=== PATIENT | male | born 1960 | race Two or more races ===

== ENCOUNTER 2024-05-28 20:15 | Emergency (ER) | payer MEDICAID, OTHER ==
[~2024-05-28] VITALS: Ht 172.7 cm; Wt 91.0 kg
--- NOTE | 2024-05-28 21:36 | DVH ---
EXAM: XY CHEST XRAY 1 VIEW TECHNIQUE: Single frontal chest radiograph CLINICAL HISTORY: cp COMPARISON: None Findings/Impression: Frontal chest radiograph demonstrates no acute osseous or superficial soft tissue abnormalities. The trachea is midline. The cardiac silhouette and mediastinum are within normal limits. No pneumothorax, pleural effusions, or consolidations.
--- NOTE | 2024-05-28 21:38 | ED.PDOC ---
History of Present Illness HPI Comments 64-year-old male who came to ER via EMS for anxiety. Does have history of Anxiety. States he was at home when he started feeling very anxious, and noted that his blood pressure was elevated. Persistence of anxiety attacks prompted patient to call the paramedics. Patient also complaining of intermittent episodes of abdominal pain, with patient presents nausea and vomiting. Patient does have history of hernia and he assumes the abdominal pain is due to it. Upon arrival of paramedics, blood pressure was 202/120 mm Hg. Chief Complaint: Anxiety Time Seen by MD: 21:38 Reviewed Notes: Nurses Notes Allergies: Coded Allergies: NO KNOWN ALLERGIES (Unverified , 05/29/24) Information Source: Patient Mode of Arrival: EMS Severity: Moderate Timing: Hours Duration: Since onset Prehospital treatment: None Medication Refill: For: Other Review of Systems: REVIEW OF SYSTEMS: No fever, no chills, or fatigue HEENT: No sore throat, no earache, no congestion, no neck pain. Cardiac: No chest pain. No palpitations. Lungs: No shortness of breath, no cough. GI: No nausea, no vomiting, no diarrhea, no constipation, (+)abdominal pain : No dysuria, frequency, or urgency. No hematuria. Musculoskeletal: No joint pain , no joint swelling, no extremity edema. Skin: No rash, no itching. Neuro: No headache, no dizziness, no weakness (+) anxiety Vital Signs Vital Signs Date Time Temp Pulse Resp B/P (MAP) Pulse Ox O2 Delivery O2 Flow Rate FiO2 05/29/24 01:09 67 18 94 Nasal Cannula* 3 32 05/29/24 01:09 97.2 130/82 (98) 97.2 Physical Exam General: Awake, alert and oriented. No acute distress. Skin: Skin in warm, dry and intact. Appropriate color for ethnicity. Nailbeds pink with no cyanosis. HEENT: Nasal cannula in place. The head is normocephalic and atraumatic. Conjunctivae are clear without exudates or hemorrhage. Sclera is non-icteric. EOM are intact. No signs of nystagmus. Eyelids are normal in appearance without swelling or lesions. Oral mucosa is pink and moist Neck: The neck is supple with normal range of motion. No JVD. Cardiac: Heart rate and rhythm are normal. No murmurs, gallops, or rubs are auscultated. Respiratory: No signs of respiratory distress. Lung sounds are clear in all lobes bilaterally without rales, ronchi, or wheezes. Abdominal: Abdomen is soft, reducible ventral hernia in the epigastric area, no overlying skin changes. Mild tenderness to palpation. Bowel sounds are present and normoactive in all four quadrants. Extremities: Upper and lower extremities are atraumatic in appearance without deformity or edema. Neurological: The patient is awake, alert and oriented to person, place, and time with normal speech. Speech is clear. There is no facial asymmetry. Psychiatric: Appropriate mood and affect. Good judgement and insight. No visual or auditory hallucinations. Past Medical History PAST MEDICAL HISTORY: HTN Past Medical History (Other): Hernia Surgical History: Denies all surgeries Family History Family History: Reviewed,noncontributory to illness Social History Smoker: Non-Smoker Alcohol: Denies ETOH Use Drugs: Denies Drug Use Lives In: Home Was a procedure done? Was a procedure done?: No Differential Dx Considerations may include: Anemia, electrolyte imbalance, hypertension, anxiety X-Ray, Labs, Meds, VS Vital Signs Date Time Temp Pulse Resp B/P (MAP) Pulse Ox O2 Delivery O2 Flow Rate FiO2 05/29/24 01:09 67 18 94 Nasal Cannula* 3 32 05/29/24 01:09 97.2 67 18 130/82 (98) 94 97.2 05/28/24 20:35 68 05/28/24 20:16 97.6 70 18 180/87 (118) 98 Lab Test 05/28/24 23:17 05/28/24 22:18 05/28/24 21:14 Range/Units Lactic Acid Level 1.2 2.5 *H 0.4-2.0 mmol/L Troponin I High Sensitivity 5 3 L </=54 ng/L White Blood Count 6.9 4.4-10.8 10^3/uL Red Blood Count 4.41 L 4.5-5.90 10^6/uL Hemoglobin 13.3 L 13.5-17.5 g/dL Hematocrit 40.3 L 41.0-53.0 % Mean Corpuscular Volume 91.3 80.0-100.0 fL Mean Corpuscular Hemoglobin 30.2 28.0-32.0 pg Mean Corpuscular Hemoglobin Concent 33.1 32.0-36.0 g/dL Red Cell Distribution Width 12.7 11.8-14.3 % Platelet Count 84 L 140-450 10^3/uL Mean Platelet Volume 11.1 H 6.9-10.8 fL Neutrophils (%) (Auto) 48.6 37.0-80.0 % Lymphocytes (%) (Auto) 37.5 10.0-50.0 % Monocytes (%) (Auto) 9.8 0.0-12.0 % Eosinophils (%) (Auto) 3.6 0.0-7.0 % Basophils (%) (Auto) 0.5 0.0-2.0 % Neutrophils # (Auto) 3.3 1.6-8.6 10 ^3/uL Lymphocytes # (Auto) 2.6 0.4-5.4 10 ^3/uL Monocytes # (Auto) 0.7 0-1.3 10 ^3/uL Eosinophils # (Auto) 0.2 0-0.8 10 ^3/uL Basophils # (Auto) 0 0-0.2 10 ^3/uL Nucleated Red Blood Cells 0.1 % Platelet Estimate Decreased Sodium Level 142 136-145 mmol/L Potassium Level 3.6 3.5-5.1 mmol/L Chloride Level 106 98-107 mmol/L Carbon Dioxide Level 25 20-31 mmol/L Anion Gap 11 5-15 Blood Urea Nitrogen 12 9-23 mg/dL Creatinine 0.86 0.700-1.30 mg/dL Glomerular Filtration Rate Calc 96 >90 mL/min BUN/Creatinine Ratio 14.0 10.0-20.0 Serum Glucose 113 H 74-106 mg/dL Calcium Level 9.3 8.7-10.4 mg/dL Total Bilirubin 0.3 0.2-1.0 mg/dL Aspartate Amino Transferase (AST) 26 13-40 U/L Alanine Aminotransferase (ALT) 24 7-40 U/L Alkaline Phosphatase 139 H 46-116 U/L B-Type Natriuretic Peptide 104.79 0-100 pg/mL Total Protein 7.0 5.7-8.2 g/dL Albumin 4.3 3.2-4.8 g/dL Lipase 26 12-53 U/L Current Medications Medications (Trade) Dose Ordered Sig/[place] Route Start Time Stop Time Status Last Admin Sodium Chloride 1,000 ml @ 1,000 mls/hr Q1H ONCE IV 05/29/24 01:15 05/29/24 02:14 DC 05/29/24 01:09 Time of 1ST Reevaluation: 21:35 Reevaluation 1ST: Unchanged Patient Education/Counseling: Diagnosis, Treatment Family Education/Counseling: No Family Present Departure 1 Departure Time of Disposition: 02:35 Impression: Primary Impression: Anxiety Additional Impressions: Abdominal pain Chest pain Disposition: HOME / SELF CARE / HOMELESS Condition: Stable Additional Instructions: ED DISCHARGE INSTRUCTIONS Instructions: Please read all instructions provided in this packet carefully. Although you have been discharged from the Emergency Department, this does not mean that you have a "clean bill of health". No definitive diagnosis for your symptoms has been made today. It is possible that you are in the process of developing a serious illness. This is why you must return to the ED without fail if any new or worsening symptoms (especially if your symptoms include chest pain, trouble breathing, abdominal pain, fever, headache, confusion, trouble seeing, or trouble walking) It is also very important that you see a primary care doctor within the next 3-5 days to follow up. If you are unable to get an appointment, return to the ED for re-evaluation. Follow up with the primary care provider about the following abnormal findings on the CT scan of her abdomen: IMPRESSION: 1. Anterior right paramidline abdominal wall hernia containing a nonobstructed anti mesenteric segment of mid transverse colon. 2. Additional supraumbilical midline anterior abdominal wall hernia containing fat. 3. Soft tissue stranding about the central mesentery which could reflect mesenteric panniculitis. Additional consideration such as malignancy less likely, though compare to any prior imaging if available. Otherwise follow-up CT could be obtained in 3-6 months for re-evaluation. 4. At least mild partially imaged calcified coronary artery disease 5. Cholelithiasis 6. Moderate retained stool in the colon. 7. Mildly dilated segment of small bowel at an anastomosis in the left abdomen, likely postoperative. 8. Mild prostatomegaly with nodular hypertrophy indenting into the bladder base Abdominal Pain: Care Instructions Overview Abdominal pain has many possible causes. Some aren't serious and get better on their own in a few days. Others need more testing and treatment. If your pain continues or gets worse, you need to be rechecked and may need more tests to find out what is wrong. You may need surgery to correct the problem. Don't ignore new symptoms, such as fever, nausea and vomiting, urination problems, pain that gets worse, and dizziness. These may be signs of a more serious problem. If you are not getting better, you may need more tests or treatment. The doctor has checked you carefully, but problems can develop later. If you notice any problems or new symptoms, get medical treatment right away. Follow-up care is a chapa part of your treatment and safety. Be sure to make and go to all appointments, and call your doctor if you are having problems. It's also a good idea to know your test results and keep a list of the medicines you take. How can you care for yourself at home? Rest until you feel better. To prevent dehydration, drink plenty of fluids. Choose water and other clear liquids until you feel better. If you have kidney, heart, or liver disease and have to limit fluids, talk with your doctor before you increase the amount of fluids you drink. When you feel like eating, start with small amounts. Do not have alcohol, caffeine, or spicy, hot, or high-fat foods for a day or two. Avoid anti-inflammatory medicines such as aspirin, ibuprofen (Advil, Motrin), and naproxen (Aleve). These can cause stomach upset. Talk to your doctor if you take daily aspirin for another health problem. When should you call for help? Call 911 anytime you think you may need emergency care. For example, call if: You passed out (lost consciousness). You pass maroon or very bloody stools. You vomit blood or what looks like coffee grounds. You have severe belly pain. Call your doctor now or seek immediate medical care if: Your pain gets worse, especially if it becomes focused in one area of your belly. You have a new or higher fever. Your stools are black and look like tar, or they have streaks of blood. You have unexpected vaginal bleeding. You have symptoms of a urinary tract infection. These may include: Pain when you urinate. Urinating more often than usual. Blood in your urine. You are dizzy or lightheaded, or you feel like you may faint. Watch closely for changes in your health, and be sure to contact your doctor if: You are not getting better as expected. Credits for Abdominal Pain: Care Instructions Current as of: April 11, 2023 Author: [employer], [employer] Clinical Review Board [employer] education is reviewed by a team that includes physicians, nurses, advanced practitioners, registered dieticians, and other healthcare professionals. Comments 64-year-old male with abdominal pain and anxiety. He reports his symptoms have resolved during the ED observation. He states he is feeling improved ambulate to go home. Possible mesenteric panniculitis noted on CT abdomen and pelvis. Patient has no leukocytosis, no fever. Lactic acid mildly elevated improved during the ED observation. Patient is advised of abnormal findings, importance of follow up with primary care provider and to return to the emergency department with any concerning symptoms. Extensive evaluation was performed to identify or rule out: (See differential diagnosis section) The following tests were ordered, and results were reviewed by me: (See diagnostic results section) The following test were independently interpreted by me: EKG-no STEMI, chest x-ray-no acute process I reviewed and agreed with the following test results read by other providers: N/A I reviewed the following notes from the pt's past medical encounters: (None available at this time) Additional information was gathered from interviewing the following independent historians: EMS Discussion of management or test interpretation with external physician/other qualified health career advisor: N/A Addressed one or more chronic illnesses with severe exacerbation, progression, or side effects of treatment: Anxiety, an acute or chronic illness that poses a threat to life or bodily function: Lactic acidemia, chest pain Decision regarding hospitalization or escalation of hospital level of care: Risk and benefits of admission for further treatment of patient's condition was considered. Due to patient's current clinical condition, high risk of decline and poor outcome if discharged and need for further inpatient management and monitoring, patient will be admitted to the hospital. Drug therapy requiring intensive monitoring for toxicity: N/A Parenteral controlled substances: N/A Decision regarding elective major surgery with identified patient or procedure risk factors: N/A Decision regarding emergency major surgery: N/A Decision not to resuscitate or to de-escalate care because of poor prognosis: N/A Decision regarding hospitalization or escalation of hospital level of care: Risks and benefits of admission for further treatment of patient's condition was considered however due to patient's stable condition patient will be discharged to follow up closely or return to care for worsening of condition or inability to follow up. Critical Care Note Critical Care Time?: No Stability Stability form required: No Heart Score Heart Score: Heart Score Response (Comments) Value History N/A 0 EKG N/A 0 Age N/A 0 Risk Factors N/A 0 Troponin N/A 0 Total 0 I personally scribed for CHUYITA MCKEON MD ([email or web address]) on 05/28/24 at 21:38. Electronically submitted by Jose Vivar ([employer]). I personally scribed for CHUYITA MCKEON MD ([email or web address]) on 05/28/24 at 21:44. Electronically submitted by Jose Vivar ([employer]). CHUYITA MCKEON MD May 28, 2024 21:38
[2024-05-28 21:51] LABS: Basophils # (auto) 0 10 ^3/uL (0-0.2); Basophils % (auto) 0.5 % (0.0-2.0); Eosinophils # (auto) 0.2 10 ^3/uL (0-0.8); Eosinophils % (auto) 3.6 % (0.0-7.0); Hematocrit 40.3 % (41.0-53.0); Hemoglobin 13.3 g/dL (13.5-17.5); Lymphocytes # (auto) 2.6 10 ^3/uL (0.4-5.4); Lymphocytes % (auto) 37.5 % (10.0-50.0); Mean Corpuscular Hemoglobin 30.2 pg (28.0-32.0); Mean Corpuscular Hgb Conc. 33.1 g/dL (32.0-36.0); Mean Corpuscular Volume 91.3 fL (80.0-100.0); Monocytes # (auto) 0.7 10 ^3/uL (0-1.3); Monocytes % (auto) 9.8 % (0.0-12.0); Neutrophils # (auto) 3.3 10 ^3/uL (1.6-8.6); Neutrophils % (auto) 48.6 % (37.0-80.0); Nucleated Red Blood Cells % 0.1 %; Platelet Count (auto) 84 10^3/uL (140-450); Red Blood Cells 4.41 10^6/uL (4.5-5.90); Red Cell Distribution Width 12.7 % (11.8-14.3); White Blood Cell 6.9 10^3/uL (4.4-10.8)
[2024-05-28 22:04] LABS: Alanine Aminotransferase 24 U/L (7-40); Albumin 4.3 g/dL (3.2-4.8); Anion Gap 11 (5-15); Aspartate Aminotransferase 26 U/L (13-40); Blood Urea Nitrogen 12 mg/dL (9-23); Calcium 9.3 mg/dL (8.7-10.4); Carbon Dioxide 25 mmol/L (20-31); Chloride 106 mmol/L (98-107); Lipase 26 U/L (12-53); Potassium 3.6 mmol/L (3.5-5.1); Sodium 142 mmol/L (136-145)
[2024-05-28 22:21] LABS: Alkaline Phosphatase 139 U/L (46-116); Bilirubin, Total 0.3 mg/dL (0.2-1.0); Glucose 113 mg/dL (74-106)
[2024-05-28 22:24] LABS: Lactic Acid w/Reflex 2.5 mmol/L (0.4-2.0)
[2024-05-28 22:32] LABS: Platelet Estimate Decreased
[2024-05-29] MEDS: SODIUM CHLORIDE 0.9% 1,000 ML IV ONE ×2 (00:44→01:09)
[2024-05-29 01:09] VITALS: BP 130/82; PULSE 67; RESP 18; TEMP 97.2; O2SAT 94
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
[2024-05-29] MEDS: IOHEXOL 300 MG/ML 100ML BOTTLE IJ ONE (02:15)
--- NOTE | 2024-05-29 07:00 | ECG ---
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
== END 2024-05-29 04:25 | disposition home or self-care (01) ==
LOC: ER 20:15 → EDBD 20:15 → ER 05-29 04:25
DX: F41.9 Anxiety disorder, unspecified (principal); R10.9 Unspecified abdominal pain; R07.89 Other chest pain; R11.2 Nausea with vomiting, unspecified; I10 Essential (primary) hypertension; R06.02 Shortness of breath; K43.9 Ventral hernia without obstruction or gangrene
CPT/HCPCS: 36415; 71045; 74177; 80053; 83605; 83690; 83880; 84484; 85025; 93005; 96360; 99285; J7030; Q9967

== ENCOUNTER 2024-06-30 18:14 | Inpatient (IN) | payer MEDICAID ==
[~2024-06-30] VITALS: Ht 172.7 cm; Wt 100.0 kg
[~2024-06-30 18:14] MED LIST: ATOR40TA52 PO; CEPH250C PO; FAMO40TA7 PO; IPRA0.00 IN; LISI40TA16 PO
--- NOTE | 2024-06-30 18:32 | ECG ---
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
--- NOTE | 2024-06-30 18:50 | ED.PDOC ---
SOB-HPI HPI Comments Vitals: temperature of 98.1F, pulse rate of 80, respiratory rate of 18, blood pressure of 139/94, and a SpO2 of 96%RA HPI: Poor Historian. 64-year-old male brought in by ambulance from home for sudden shortness of breath that developed approximately an hour prior to my evaluation. Patient is supposed to be on Lasix but has not been taking it for one year. Patient was hypotensive at the scene with systolic blood pressure in the 190s and EMS r eports hearing some crackles./rales. Initial pulse ox was 91%. Patient was given nitroglycerin sublingually which improves his blood pressure and patient felt some improvement. Past Medcial History: CHF, hypertension, anxiety Past Surgical History: REVIEW OF SYSTEMS: CONSTITUTIONAL: Denies acute: fever, diaphoresis, chills, HEAD: Denies acute: headache, photophobia Eyes: Denies acute: Double vision, vision loss, eye pain, eye discharge. EARS: Denies acute: tinnitus, hearing loss, ear discharge, ear pain, THROAT: Denies acute: sore throat, swelling, difficulty swallowing , pain with swallowing, change in voice. NECK: Denies acute: neck pain, neck swelling, stiff neck. HEART: Denies acute : chest pain, palpitations, LUNGS: Denies acute: wheezing, cough, hemoptysis ABDOMEN: Denies acute: abdominal pain, Nausea, Vomiting, diarrhea, melena , hematemesis, hematochezia SKIN: Denies acute: rash, redness, lesions, itchiness. EXTREMITIES: Denies acute: calf pain, numbness, tingling, weakness, denies pain in extremity. Denies acute: Low back pain. Neuro: Denies acute: focal neurological deficit, motor or sensory focal neurological deficit, tremors, seizure like activity, confusion, dizziness, change in mental status, loss of bowel or bladder function, cauda equina like symptoms. : Denies acute: dysuria, hematuria, flank pain, increase in urinary frequency. PSYCH: Denies acute: hallucination, suicidal ideation, homicidal ideation. PHYSICAL EXAM: General: no acute distress, awake and alert. Head: normocephalic, atraumatic. Neck: supple, trachea is midline, no swelling. Throat: Normal phonation. Eyes:, no erythema, no purulent discharge, no proptosis, no icterus. Heart: regular rate, regular rhythm, no significant murmur appreciated. Lungs: Mild to moderate apparent respiratory distress, No wheezing, no rhonchi, mild crackles. No stridors Abdomen: non tender to palpation, non distended, soft, no guarding, no rebound, + bowel sounds. Neuro: Awake, Alert, oriented to name, self, situation, follows commands GCS=15. Speech is normal. Skin: no petechia, no purpura, no cyanosis, non-pale, not jaundice. Lower extremities: --trace bilateral - Pitting edema no deformity, no focal swelling, no calf TTP. Makes eye contact. moves all four extremities. Face: no apparent facial droop. Chief Complaint: Shortness of Breath Time Seen by MD: 18:18 Reviewed notes: Allergies Information Source: Patient, Emergency Med Personnel Mode of Arrival: EMS EKG EKG : Pulse Rate (adult): 67 [facility]: Normal Cardiac Rhythm: NSR Block: None Hypertrophy: None ST: Normal Was a procedure done? Was a procedure done?: No X-Ray, Labs, Meds, VS Vital Signs Date Time Temp Pulse Resp B/P (MAP) Pulse Ox O2 Delivery O2 Flow Rate FiO2 06/30/24 18:50 67 06/30/24 18:24 67 06/30/24 18:17 98.1 80 18 139/94 (109) 96 Lab Test 06/30/24 21:01 06/30/24 19:46 06/30/24 18:48 Range/Units Blood Gas Specimen Type Arterial Blood Gas Sample Site Left radial Blood Gas Patient Temperature 37.0 Arterial Blood Date Drawn [id number] Arterial Blood pH 7.384 7.350-7.450 Arterial Blood Partial Pressure CO2 45.9 35.0-48.0 mmHg Arterial Blood Partial Pressure O2 74.9 L 83.0-108.0 mmHg Arterial Blood HCO3 26.8 21.0-28.0 mmol/L Arterial Blood Oxygen Saturation 94.2 94.0-98.0 % Arterial Blood Base Excess 1.2 -2.0-3.0 mmol/L Arterial Blood Oxyhemoglobin 93.2 L 94.0-98.0 % Arterial Blood Carboxyhemoglobin 0.8 0.5-1.5 % Arterial Blood Methemoglobin 0.3 0.0-1.5 % Joselito Test Yes Blood Gas Total Hemoglobin 14.80 13.5-17.5 g/dL Blood Gas Liter Flow 2.00 Blood Gas Modality Nasal cannula FiO2 % 28.0 Troponin I High Sensitivity 4 4 </=54 ng/L White Blood Count 7.5 4.4-10.8 10^3/uL Red Blood Count 4.48 L 4.5-5.90 10^6/uL Hemoglobin 13.7 13.5-17.5 g/dL Hematocrit 41.0 41.0-53.0 % Mean Corpuscular Volume 91.6 80.0-100.0 fL Mean Corpuscular Hemoglobin 30.5 28.0-32.0 pg Mean Corpuscular Hemoglobin Concent 33.3 32.0-36.0 g/dL Red Cell Distribution Width 12.8 11.8-14.3 % Platelet Count 97 L 140-450 10^3/uL Mean Platelet Volume 12.3 H 6.9-10.8 fL Neutrophils (%) (Auto) 52.3 37.0-80.0 % Lymphocytes (%) (Auto) 35.4 10.0-50.0 % Monocytes (%) (Auto) 8.5 0.0-12.0 % Eosinophils (%) (Auto) 3.2 0.0-7.0 % Basophils (%) (Auto) 0.6 0.0-2.0 % Neutrophils # (Auto) 3.9 1.6-8.6 10 ^3/uL Lymphocytes # (Auto) 2.7 0.4-5.4 10 ^3/uL Monocytes # (Auto) 0.6 0-1.3 10 ^3/uL Eosinophils # (Auto) 0.2 0-0.8 10 ^3/uL Basophils # (Auto) 0 0-0.2 10 ^3/uL Nucleated Red Blood Cells 0.1 % Sodium Level 141 136-145 mmol/L Potassium Level 3.6 3.5-5.1 mmol/L Chloride Level 107 98-107 mmol/L Carbon Dioxide Level 26 20-31 mmol/L Anion Gap 8 5-15 Blood Urea Nitrogen 12 9-23 mg/dL Creatinine 0.83 0.700-1.30 mg/dL Glomerular Filtration Rate Calc 97 >90 mL/min BUN/Creatinine Ratio 14.5 10.0-20.0 Serum Glucose 98 74-106 mg/dL Lactic Acid Level 1.6 0.4-2.0 mmol/L Calcium Level 9.1 8.7-10.4 mg/dL Magnesium Level 1.8 1.6-2.6 mg/dL Total Bilirubin 0.4 0.2-1.0 mg/dL Aspartate Amino Transferase (AST) 23 13-40 U/L Alanine Aminotransferase (ALT) 20 7-40 U/L Alkaline Phosphatase 127 H 46-116 U/L B-Type Natriuretic Peptide 73.10 0-100 pg/mL Total Protein 7.2 5.7-8.2 g/dL Albumin 4.3 3.2-4.8 g/dL [place] [id number] Ph: [phone] DIAGNOSTIC IMAGING Diagnostic Imaging Report : [id number] Signed PATIENT: JOHN ZAPATA ACCT: [id number] UNIT: [id number] : 1960 LOC: ER ROOM / BED: / AGE / SEX: 64 / M ADM STATUS: REG ER SERVICE 183 ORDERING PHYSICIAN: JESSICA FRASER DO PROCEDURE(s): CXRP - CHEST PORTABLE REASON: sob ORDER NUMBER(s): [id number], ACCESSION NUMBER(s): [id number] CHEST RADIOGRAPH Indication: sob Technique: Single frontal view of the chest was obtained Comparison: XY CHEST XRAY 1 VIEW on DOS: 05/28/24 FINDINGS: Lines and Tubes: None Lungs: Clear Pleura: No effusion. No pneumothorax. Cardiomediastinal contours: Unremarkable Bones: Unremarkable IMPRESSION: Clear lungs. ATED BY: APRIL NDIAYE DO DICTATED DATE/TIME: 06/30/241924 SIGNED BY: APRIL NDIAYE DO SIGNED DATE/TIME: 06/30/241924 CC: Reevaluation 1ST: Unchanged Patient Education/Counseling: Diagnosis, Treatment Family Education/Counseling: No Family Present Departure 1 Departure Time of Disposition: 20:52 Impression: Primary Impression: Dyspnea Additional Impressions: Hypertensive urgency History of medication noncompliance Disposition: ADMITTED INPATIENT Admit to: [facility] Condition: Guarded Discharged With: Self Critical Care Note Critical Care Time?: No Heart Score Heart Score: Heart Score Response (Comments) Value Age >65 2 Risk Factors 1 or 2 risk factors 1 Total 3 I personally scribed for JESSICA FRASER DO ([email or web address]) on 06/30/24 at 18:50. Electronically submitted by Fly Malik ([email or web address]). I personally scribed for JESSICA FRASER DO ([email or web address]) on 07/01/24 at 01:36. Electronically submitted by Fly Malik ([email or web address]). JESSICA FRASER DO Jun 30, 2024 18:50
[2024-06-30 19:20] LABS: Basophils # (auto) 0 10 ^3/uL (0-0.2); Basophils % (auto) 0.6 % (0.0-2.0); Eosinophils # (auto) 0.2 10 ^3/uL (0-0.8); Eosinophils % (auto) 3.2 % (0.0-7.0); Hemoglobin 13.7 g/dL (13.5-17.5); Lymphocytes # (auto) 2.7 10 ^3/uL (0.4-5.4); Lymphocytes % (auto) 35.4 % (10.0-50.0); Mean Corpuscular Hemoglobin 30.5 pg (28.0-32.0); Mean Corpuscular Hgb Conc. 33.3 g/dL (32.0-36.0); Mean Corpuscular Volume 91.6 fL (80.0-100.0); Monocytes # (auto) 0.6 10 ^3/uL (0-1.3); Monocytes % (auto) 8.5 % (0.0-12.0); Neutrophils # (auto) 3.9 10 ^3/uL (1.6-8.6); Neutrophils % (auto) 52.3 % (37.0-80.0); Nucleated Red Blood Cells % 0.1 %; Platelet Count (auto) 97 10^3/uL (140-450); Red Blood Cells 4.48 10^6/uL (4.5-5.90); Red Cell Distribution Width 12.8 % (11.8-14.3); White Blood Cell 7.5 10^3/uL (4.4-10.8)
--- NOTE | 2024-06-30 19:28 | DVH ---
CHEST RADIOGRAPH Indication: sob Technique: Single frontal view of the chest was obtained Comparison: XY CHEST XRAY 1 VIEW on DOS: 05/28/24 FINDINGS: Lines and Tubes: None Lungs: Clear Pleura: No effusion. No pneumothorax. Cardiomediastinal contours: Unremarkable Bones: Unremarkable IMPRESSION: Clear lungs.
[2024-06-30 19:49] LABS: Alanine Aminotransferase 20 U/L (7-40); Albumin 4.3 g/dL (3.2-4.8); Anion Gap 8 (5-15); Aspartate Aminotransferase 23 U/L (13-40); BUN/Creatinine Ratio 14.5 (10.0-20.0); Blood Urea Nitrogen 12 mg/dL (9-23); Calcium 9.1 mg/dL (8.7-10.4); Carbon Dioxide 26 mmol/L (20-31); Chloride 107 mmol/L (98-107); Glucose 98 mg/dL (74-106); Magnesium 1.8 mg/dL (1.6-2.6); Potassium 3.6 mmol/L (3.5-5.1); Sodium 141 mmol/L (136-145)
[2024-06-30 19:50] LABS: Bilirubin, Total 0.4 mg/dL (0.2-1.0); Total Protein 7.2 g/dL (5.7-8.2)
[2024-06-30 19:51] LABS: Alkaline Phosphatase 127 U/L (46-116)
[2024-06-30 21:05] LABS: Base Excess 1.2 mmol/L (-2.0-3.0)
--- NOTE | 2024-06-30 21:40 | DVHHP2 ---
History of Present Illness Reason for Visit: Shortness of breath History of Present Illness 64-year-old male presents for evaluation of shortness for breath. Patient with a history of congestive heart failure and COPD uses 2 L of nasal cannula oxygen at home. He presents with a one day history of worsening shortness for breath not being relieved with his inhaler or nebulizers. Denies cough or fever. No chest pain at the moment. No other acute complaints reported. Past Medical History COPD, hypertension, congestive heart failure and CVA Past Surgical History Denies Family History Noncontributory Smoke: No ALCOHOL: none Drugs: None Lives: with Family Review of Systems Review of Systems Review of systems are currently negative otherwise addressed in HPI. Allergies: Coded Allergies: NO KNOWN ALLERGIES (Unverified , 05/29/24) Exam Vital Signs Vital Signs Date Time Temp Pulse Resp B/P (MAP) Pulse Ox O2 Delivery O2 Flow Rate FiO2 06/30/24 18:50 67 06/30/24 18:17 98.1 18 139/94 (109) 96 Exam Gen: 64-year-old male in mild distress Skin: Warm, dry, normal color and texture, no rash. HEENT: Normocephalic atraumatic, mucous membranes moist and pink. Neck: Cervical and supraclavicular nodes normal without enlargement, trachea is midline, thyroid gland is normal without masses. Pulmonary: Bilateral wheeze Cardiac: Regular rate and rhythm. No murmur Abdomen: Soft, nontender, nondistended, bowel sounds present all 4 quadrants, no guarding, no rigidity, no organomegaly. Extremities: No cyanosis, clubbing, no edema Neuro: Cranial nerves II through XII grossly intact, right-sided deficits from previous Labs/Xrays ORDERING PHYSICIAN: JESSICA FRASER DO PROCEDURE(s): CXRP - CHEST PORTABLE REASON: sob ORDER NUMBER(s): [id number], ACCESSION NUMBER(s): [id number] CHEST RADIOGRAPH Indication: sob Technique: Single frontal view of the chest was obtained Comparison: XY CHEST XRAY 1 VIEW on DOS: 05/28/24 FINDINGS: Lines and Tubes: None Lungs: Clear Pleura: No effusion. No pneumothorax. Cardiomediastinal contours: Unremarkable Bones: Unremarkable IMPRESSION: Clear lungs. Labs Test 06/30/24 21:01 06/30/24 19:46 06/30/24 18:48 Range/Units Blood Gas Specimen Type Arterial Blood Gas Sample Site Left radial Blood Gas Patient Temperature 37.0 Arterial Blood Date Drawn Arterial Blood pH 7.384 7.350-7.450 Arterial Blood Partial Pressure CO2 45.9 35.0-48.0 mmHg Arterial Blood Partial Pressure O2 74.9 L 83.0-108.0 mmHg Arterial Blood HCO3 26.8 21.0-28.0 mmol/L Arterial Blood Oxygen Saturation 94.2 94.0-98.0 % Arterial Blood Base Excess 1.2 -2.0-3.0 mmol/L Arterial Blood Oxyhemoglobin 93.2 L 94.0-98.0 % Arterial Blood Carboxyhemoglobin 0.8 0.5-1.5 % Arterial Blood Methemoglobin 0.3 0.0-1.5 % Joselito Test Yes Blood Gas Total Hemoglobin 14.80 13.5-17.5 g/dL Blood Gas Liter Flow 2.00 Blood Gas Modality Nasal cannula FiO2 % 28.0 Troponin I High Sensitivity 4 </=54 ng/L White Blood Count 7.5 4.4-10.8 10^3/uL Red Blood Count 4.48 L 4.5-5.90 10^6/uL Hemoglobin 13.7 13.5-17.5 g/dL Hematocrit 41.0 41.0-53.0 % Mean Corpuscular Volume 91.6 80.0-100.0 fL Mean Corpuscular Hemoglobin 30.5 28.0-32.0 pg Mean Corpuscular Hemoglobin Concent 33.3 32.0-36.0 g/dL Red Cell Distribution Width 12.8 11.8-14.3 % Platelet Count 97 L 140-450 10^3/uL Mean Platelet Volume 12.3 H 6.9-10.8 fL Neutrophils (%) (Auto) 52.3 37.0-80.0 % Lymphocytes (%) (Auto) 35.4 10.0-50.0 % Monocytes (%) (Auto) 8.5 0.0-12.0 % Eosinophils (%) (Auto) 3.2 0.0-7.0 % Basophils (%) (Auto) 0.6 0.0-2.0 % Neutrophils # (Auto) 3.9 1.6-8.6 10 ^3/uL Lymphocytes # (Auto) 2.7 0.4-5.4 10 ^3/uL Monocytes # (Auto) 0.6 0-1.3 10 ^3/uL Eosinophils # (Auto) 0.2 0-0.8 10 ^3/uL Basophils # (Auto) 0 0-0.2 10 ^3/uL Nucleated Red Blood Cells 0.1 % Sodium Level 141 136-145 mmol/L Potassium Level 3.6 3.5-5.1 mmol/L Chloride Level 107 98-107 mmol/L Carbon Dioxide Level 26 20-31 mmol/L Anion Gap 8 5-15 Blood Urea Nitrogen 12 9-23 mg/dL Creatinine 0.83 0.700-1.30 mg/dL Glomerular Filtration Rate Calc 97 >90 mL/min BUN/Creatinine Ratio 14.5 10.0-20.0 Serum Glucose 98 74-106 mg/dL Lactic Acid Level 1.6 0.4-2.0 mmol/L Calcium Level 9.1 8.7-10.4 mg/dL Magnesium Level 1.8 1.6-2.6 mg/dL Total Bilirubin 0.4 0.2-1.0 mg/dL Aspartate Amino Transferase (AST) 23 13-40 U/L Alanine Aminotransferase (ALT) 20 7-40 U/L Alkaline Phosphatase 127 H 46-116 U/L B-Type Natriuretic Peptide 73.10 0-100 pg/mL Total Protein 7.2 5.7-8.2 g/dL Albumin 4.3 3.2-4.8 g/dL Assessment/Plan Assessment/Plan Assessment Acute on chronic respiratory failure COPD exacerbation Congestive heart failure Hypertension History of CVA with right-sided deficits Plan Admit the patient to [facility] [place] to the hospitalist Med nebs Resume home medications Continue treatment per orders Plan discussed with: Patient My Orders Orders - AUSTEN AMAYACNP Procedure Category Date Status Time Furosemide Tablet PHA 07/01/24 Transmitted (Lasix Tablet) 10:00 Albuterol Medneb PHA 06/30/24 Transmitted (Ventolin Medneb) 21:45 Ipratropium Medneb PHA 06/30/24 Transmitted (Atrovent Medneb) 21:45 Lisinopril Tablet PHA 07/01/24 Transmitted (Zestril Tablet) 10:00 Aspirin Tablet PHA 07/01/24 Transmitted 10:00 Basic Metabolic Panel LAB 07/01/24 Verified 04:00 Admit ADMIT 06/30/24 Transmitted 21:33 Ondansetron Hcl PHA 06/30/24 Transmitted (Zofran) 21:45 Enoxaparin Sodium PHA 07/01/24 Transmitted (Lovenox) 10:00 Cardiac DIET 07/01/24 Transmitted Diet-2gna,Lofat,Lochol Breakfast Echo 2d Mode Cardiac US 06/30/24 Logged DOP 21:33 Condition: Stable BOB 06/30/24 Transmitted 21:33 Acetaminophen Tablet PHA 06/30/24 Transmitted (Tylenol Tablet) 21:45 Bedrest With Bathroom BOB 06/30/24 Transmitted Privileg 21:33 Date of Service: Jun 30, 2024 Billing Provider: AUSTEN AMAYA Common Visit Codes: [id number] INP/OBS CARE (HIGH) AUSTEN AMAYA Jun 30, 2024 21:40
[2024-06-30] MEDS ORDERED: IPRATROPIUM BROM 0.5 MG/2.5ML INH SOL NEB PRN (21:45)
[2024-06-30] MEDS ORDERED: ONDANSETRON HCL 4 MG/2 ML VIAL IV PRN (21:45)
[2024-06-30] MEDS ORDERED: ALBUTEROL SULF 2.5 MG/0.5ML(0.5%) NEB SOLN NEB PRN (21:45)
[2024-06-30 22:10] VITALS: BP 139/94; PULSE 67; RESP 18; TEMP 98.1; O2SAT 96
[2024-07-01] VITALS (9 sets, daily range): BP systolic 127–152; BP diastolic 68–71; PULSE 63–81; RESP 16–18; TEMP 97.9; O2SAT 93–97
[2024-07-01] MEDS: FUROSEMIDE 40 MG/4 ML VIAL IV ONE (01:39)
[2024-07-01] MEDS: NITROGLYCERIN 0.4 MG SL TAB SL ONE (01:40)
[2024-07-01 09:11] LABS: Chloride 106 mmol/L (98-107); Potassium 3.6 mmol/L (3.5-5.1); Sodium 143 mmol/L (136-145)
[2024-07-01 09:12] LABS: Anion Gap 7 (5-15); Calcium 9.2 mg/dL (8.7-10.4); Carbon Dioxide 30 mmol/L (20-31)
[2024-07-01 09:17] LABS: BUN/Creatinine Ratio 16.5 (10.0-20.0); Blood Urea Nitrogen 15 mg/dL (9-23); Glucose 103 mg/dL (74-106)
[2024-07-01] MEDS: LISINOPRIL 20 MG TAB PO SCH (10:00)
[2024-07-01] MEDS ORDERED: ENOXAPARIN SOD 40 MG/0.4 ML SYRINGE SC SCH (10:00)
[2024-07-01 10:24] LABS: Urine Bacteria None Seen /hpf (None Seen)
[2024-07-01 10:49] LABS: Amphetamine Screen, Urine Neg (NEGATIVE); Barbiturate Scree,Urine Neg (NEGATIVE); Benzodiazephine Screen, Urine Neg (NEGATIVE); Cocaine Screen, Urine Neg (NEGATIVE); Opiate Scree,Urine Neg (NEGATIVE); Phencyclidine Screen, Urine Neg (NEGATIVE)
[2024-07-01] MEDS: FUROSEMIDE 20 MG TAB PO SCH (10:49)
[2024-07-01 10:50] LABS: Urine Blood Negative /uL (Negative); Urine Clarity Clear (Clear); Urine Color Light-Yellow (Yellow); Urine Hyaline Cast FEW /lpf (0 - 2); Urine Protein, UAD Negative (Negative); Urine Specific Gravity 1.012 (1.001-1.035); Urine Squamous Epithelial Cell None Seen /hpf (<5); Urine Urobilinogen Normal (Negative); Urine WBC <1 /hpf (0 - 3)
[2024-07-01] MEDS: ASPirin 81 mg TAB PO SCH (10:50)
[2024-07-01 10:53] LABS: Cannabinoid Screen, Urine Neg (NEGATIVE)
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
[2024-07-01] MEDS: PANTOPRAZOLE 40 MG/10 ML VIAL INJ IV ONE (19:04)
[2024-07-01] MEDS: ATORVASTATIN 20 MG TAB PO SCH (21:15)
[2024-07-01] MEDS: methylPREDNISolone SOD SUCC 40 MG/ML VL IV SCH (21:15)
[2024-07-01] MEDS: ACETAMINOPHEN 325 MG TAB PO PRN (21:26)
[2024-07-01 23:46] LABS: COVID19 ANTIGEN SOFIA FIA NEGATIVE (NEGATIVE)
[2024-07-02] VITALS (9 sets, daily range): BP systolic 119–160; BP diastolic 76–98; PULSE 71–82; RESP 16–19; TEMP 97.1–98.4; O2SAT 94–99
[2024-07-02] MEDS: PANTOPRAZOLE 40 MG TAB PO SCH (06:16)
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
[2024-07-02 07:42] LABS: Basophils # (auto) 0 10 ^3/uL (0-0.2); Basophils % (auto) 0.2 % (0.0-2.0); Eosinophils # (auto) 0 10 ^3/uL (0-0.8); Eosinophils % (auto) 0.1 % (0.0-7.0); Hematocrit 38.7 % (41.0-53.0); Lymphocytes # (auto) 1.5 10 ^3/uL (0.4-5.4); Lymphocytes % (auto) 24.3 % (10.0-50.0); Mean Corpuscular Hemoglobin 30.7 pg (28.0-32.0); Mean Corpuscular Hgb Conc. 33.5 g/dL (32.0-36.0); Mean Corpuscular Volume 91.6 fL (80.0-100.0); Monocytes # (auto) 0.4 10 ^3/uL (0-1.3); Monocytes % (auto) 6.5 % (0.0-12.0); Neutrophils # (auto) 4.3 10 ^3/uL (1.6-8.6); Neutrophils % (auto) 68.9 % (37.0-80.0); Nucleated Red Blood Cells % 0.1 %; Platelet Count (auto) 87 10^3/uL (140-450); Red Blood Cells 4.23 10^6/uL (4.5-5.90); Red Cell Distribution Width 12.5 % (11.8-14.3); White Blood Cell 6.2 10^3/uL (4.4-10.8)
[2024-07-02 08:01] LABS: Alanine Aminotransferase 15 U/L (7-40); Alkaline Phosphatase 92 U/L (46-116); Anion Gap 8 (5-15); Aspartate Aminotransferase 19 U/L (13-40); Bilirubin, Total 0.7 mg/dL (0.2-1.0); Blood Urea Nitrogen 12 mg/dL (9-23); Calcium 9.3 mg/dL (8.7-10.4); Carbon Dioxide 25 mmol/L (20-31); Chloride 106 mmol/L (98-107); Potassium 3.7 mmol/L (3.5-5.1); Sodium 139 mmol/L (136-145)
[2024-07-02 08:06] LABS: Glucose 158 mg/dL (74-106)
[2024-07-02] MEDS: LOSARTAN POTASSIUM 50 MG TAB PO ONE (08:33)
[2024-07-02] MEDS ORDERED: LOSA-534 PO (12:00)
[2024-07-02] MEDS ORDERED: AZIT500T66 PO (12:00)
[2024-07-02] MEDS ORDERED: PRED20TA2 PO (12:00)
--- NOTE | 2024-07-02 14:07 | DVHSR ---
APPROVED REPORT EXAM: Two-dimensional and M-mode echocardiogram with Doppler and color Doppler. Blood Pressure: 160/98 mmHg INDICATION EF RISK FACTORS Height: 68, Weight: 220 DIMENSIONS LVDd5.4 (3.8-5.7cm)LA (2D)4.8 (1.9-4.0cm)Aortic Root3.7 (2.0-3.7cm) LVDs3.6 (2.5-4.0cm)LA (MM) (1.9-4.0cm)Aortic Cusp Exc2.1 (1.5-2.0cm) EF (%) 60.0 (55-70%)Rt. Atrium4.3 (1.9-4.0cm)Asc. Aorta cm IVSd1.2 (0.7-1.1cm)RV (D) (1.8-2.4cm) PWd1.2 (0.7-1.1cm) Mitral Valve MitralMitral Stenosis E wave0.42m/sMV Mean GR.mmHg A wave0.84m/sMV Peak GR.mmHg E/A ratio0.52D MVAcm2 DECEL [id number] 1/2 Aube96zh IVRTmsDop MVA2.69cm2 Aortic Valve Aortic ValveAortic Stenosis V11.03m/[place] Mean GR.5mmHg V21.48m/[place]apis Peak GR.9mmHg LVOT Diameter2.1 (1.8-2.4cm)Doppler AVA2.41cm2 Pulmonic Valve V21.09m/s Tricuspid Valve TR Velocity2.13m/s [id number] LEFT VENTRICLE Normal left ventricular size. There is mild concentric left ventricular hypertrophy. Ejection fract ion is normal and is estimated at 55-60%. There is no gross wall motion abnormalities however, suben docardial definition is suboptimal. There is impaired relaxation of the left ventricle. E to E prim e ratio is in the normal range. RIGHT VENTRICLE The right ventricle is mildly dilated in size. Right ventricular systolic function is normal. ATRIA Both atria are mildly dilated in size. MITRAL VALVE Normal structure and function. There is no significant mitral regurgitation. PULMONIC VALVE Likely normal. TRICUSPID VALVE Normal structure and function. There is mild tricuspid regurgitation. PA systolic pressure is estim ated at 30-35 mm Hg. AORTIC VALVE Normal structure and function. GREAT VESSELS The aortic root is of normal size. The proximal ascending aorta is not visualized. PERICARDIAL EFFUSION No pericardial effusion. IVC is not visualized. Other Information Technically limited study due to body habitus. Conclusion Technically limited study. The left ventricle is of normal size and systolic function. Ejection fraction is estimated at 55-60%. Mild concentric left ventricular hypertrophy. Mildly dilated right ventricle with preserved systolic function. Mild biatrial enlargement. No hemodynamically significant valvular disease. PA systolic pressure is estimated at 30-35 mm Hg.
[2024-07-02] MEDS: FUROSEMIDE 20 MG/2 ML VIAL IV SCH (18:00)
[2024-07-02 19:00] LABS: Rapid Influenza A Negative (Negative); Rapid Influenza B Negative (Negative)
[2024-07-02] MEDS ORDERED: ATORVASTATIN 20 MG TAB PO SCH (22:00)
[2024-07-03] MEDS ORDERED: LOSARTAN POTASSIUM 50 MG TAB PO SCH (10:00)
== END 2024-07-02 19:30 | disposition home or self-care (01) | DRG 133 ==
LOC: ER 18:14 → EDBD 18:14 → OVERFLOW 21:33 → WEST WING 07-01 23:56
PROVIDERS: ADMIT Student in an Organized Health Care Education/Training Program; ATTEND Student in an Organized Health Care Education/Training Program
DX: J96.21 Acute and chronic respiratory failure with hypoxia (principal); I50.33 Acute on chronic diastolic (congestive) heart failure; D69.6 Thrombocytopenia, unspecified; I69.351 Hemiplegia and hemiparesis following cerebral infarction affecting right dominant side; J44.1 Chronic obstructive pulmonary disease with (acute) exacerbation; J12.9 Viral pneumonia, unspecified; J44.0 Chronic obstructive pulmonary disease with (acute) lower respiratory infection; Z20.822 Contact with and (suspected) exposure to COVID-19; I11.0 Hypertensive heart disease with heart failure; K21.9 Gastro-esophageal reflux disease without esophagitis; F41.9 Anxiety disorder, unspecified; I16.0 Hypertensive urgency; E55.9 Vitamin D deficiency, unspecified; K42.9 Umbilical hernia without obstruction or gangrene; E66.9 Obesity, unspecified; E78.5 Hyperlipidemia, unspecified; Z91.148 Patient's other noncompliance with medication regimen for other reason; Z68.33 Body mass index [BMI] 33.0-33.9, adult; Z99.3 Dependence on wheelchair; Z87.891 Personal history of nicotine dependence; Z83.3 Family history of diabetes mellitus
CPT/HCPCS: 36415; 36600; 71045; 80048; 80053; 80307; 81001; 82805; 83605; 83735; 83880; 84484; 85025; 87426; 87804; 93005; 93306; 94640; G0378; J2470

== ENCOUNTER 2024-07-31 06:17 | Inpatient (IN) | payer MEDICAID ==
[~2024-07-31] VITALS: Ht 172.7 cm; Wt 98.1 kg
[2024-07-31] VITALS (7 sets, daily range): BP systolic 130–132; BP diastolic 72–73; PULSE 75–87; RESP 16–18; TEMP 97.5–98.2; O2SAT 92–100
[~2024-07-31 06:17] MED LIST changes: +AZIT500T66 PO; -LISI40TA16 PO; +LOSA-534 PO; +PRED20TA2 PO
--- NOTE | 2024-07-31 06:36 | ECG ---
[facility] Test Date: 2024-07-31 Test Time: 06:22:57 Pat Name: JOHN ZAPATA Department: ER Room: Gender: M Compliance Counsel: SABRINA : 1960 Requested By: LEOPOLDO SIMON Order Number: [id number] Reading MD: James Cardenas Measurements Intervals Raymond Rate: 84 P: 0 TX: 145 QRS: -29 QRSD: 102 T: 25 QT: 393 QTc: 465 Interpretive Statements Sinus rhythm Borderline left axis deviation Artifact in lead(s) I,II,III,aVR,aVL,aVF,V1,V2 Electronically Signed On 07-31-2024 12:12:26 PST by James Cardenas Please click the below link to view image of tracing.
[2024-07-31] MEDS: ONDANSETRON HCL 4 MG/2 ML VIAL IV ONE (07:00)
[2024-07-31 07:34] LABS: Basophils # (auto) 0 10 ^3/uL (0-0.2); Basophils % (auto) 0.3 % (0.0-2.0); Eosinophils # (auto) 0 10 ^3/uL (0-0.8); Eosinophils % (auto) 0.2 % (0.0-7.0); Hematocrit 38.8 % (41.0-53.0); Hemoglobin 13.3 g/dL (13.5-17.5); Lymphocytes % (auto) 8.7 % (10.0-50.0); Mean Corpuscular Hemoglobin 30.6 pg (28.0-32.0); Mean Corpuscular Hgb Conc. 34.2 g/dL (32.0-36.0); Mean Corpuscular Volume 89.5 fL (80.0-100.0); Monocytes # (auto) 0.8 10 ^3/uL (0-1.3); Monocytes % (auto) 7.1 % (0.0-12.0); Neutrophils # (auto) 9.2 10 ^3/uL (1.6-8.6); Neutrophils % (auto) 83.7 % (37.0-80.0); Platelet Count (auto) 83 10^3/uL (140-450); Red Blood Cells 4.33 10^6/uL (4.5-5.90); Red Cell Distribution Width 12.8 % (11.8-14.3)
--- NOTE | 2024-07-31 07:35 | DVH ---
XY CHEST TWO VIEWS ROUTINE CLINICAL HISTORY: ro pna COMPARISON: Chest radiograph dated 06/30/2024 TECHNIQUE: Frontal and lateral view of the chest was obtained FINDINGS: Lines and Tubes: None Lungs: No focal consolidation. Pleura: No effusion. No pneumothorax. Cardiomediastinal contours: Unremarkable Bones: No acute osseous abnormality. IMPRESSION: 1. No acute cardiopulmonary disease.
[2024-07-31 07:38] LABS: Albumin 4.5 g/dL (3.2-4.8); Anion Gap 9 (5-15); Blood Urea Nitrogen 12 mg/dL (9-23); Calcium 9.2 mg/dL (8.7-10.4); Carbon Dioxide 26 mmol/L (20-31); Chloride 101 mmol/L (98-107); Lipase 24 U/L (12-53); Sodium 136 mmol/L (136-145); Total Protein 7.1 g/dL (5.7-8.2)
--- NOTE | 2024-07-31 07:41 | ED.PDOC ---
SOB-HPI HPI Comments 64-year-old male brought in by EMS presents with a chief complaint of SOB, nausea, and vomiting x onset 0430 this morning. Patient states that he believes that his oxygen concentrator was not working and had to increase his liters to 3L via NC. Patient reports that he then took all his medications thinking that they would help, but reports that he became nauseous and then vomited. Patient reports pleuritic chest pain that he rates a sharp 8/10. Patient was sating at 90% on room air. Chief Complaint: Shortness of Breath Time Seen by MD: 07:08 Reviewed notes: Medications, Allergies Information Source: Patient Mode of Arrival: EMS Severity: Moderate Timing: Hours Duration: Since onset Context: At Rest PE Risk Factors: None History of: COPD, CHF Prehospital treatment: Oxygen Past Medical History PAST MEDICAL HISTORY: CHF, COPD, HTN Surgical History: Denies all surgeries Family History Family History: Reviewed,noncontributory to illness Social History Smoker: Non-Smoker Alcohol: Denies ETOH Use Drugs: Denies Drug Use Lives In: Home Constitutional: denies: chills, diaphoresis, fatigue, fever, malaise, sweats, weakness, others EENTM: denies: blurred vision, double vision, ear bleeding, ear discharge, ear drainage, ear pain, ear ringing, eye pain, eye redness, hearing loss, mouth pain, mouth swelling, nasal discharge, nose bleeding, nose congestion, nose pain, photophobia, tearing, throat pain, throat swelling, voice changes, others Respiratory: reports: shortness of breath; denies: cough, hemoptysis, orthopnea, SOB at rest, SOB with excertion, stridor, wheezing, others Cardiovascular: denies: chest pain, dizzy spells, diaphoresis, Dyspnea on exertion, edema, irregular heart beat, left arm pain, lightheadedness, palpitations, PND, syncope, others Gastrointestinal: reports: nausea, vomiting; denies: abdomen distended, abdominal pain, blood streaked bowels, constipated, diarrhea, dysphagia, difficulty swallowing, hematemesis, melena, poor appetite, poor fluid intake, rectal bleeding, rectal pain, others Genitourinary: denies: burning, dysuria, flank pain, frequency, hematuria, incontinence, penile discharge, penile sore, pain, testicle pain, testicle swelling, urgency, others Neurological: denies: dizziness, fainting, headache, left sided numbness, left sided weakness, numbness, paresthesia, pre-existing deficit, right sided numbness, right sided weakness, seizure, speech problems, tingling, tremors, weakness, others Musculoskeletal: reports: muscle pain; denies: back pain, gout, joint pain, joint swelling, muscle stiffness, neck pain, others Integumetry: denies: bruises, change in color, change in hair/nails, dryness, laceration, lesions, lumps, rash, wounds, others Allergic/Immunocompromised: denies: Difficulty Healing, Frequent Infections, Hives, Itching, others Hematologic/Lymphatic: denies: anemia, blood clots, easy bleeding, easy bruising, swollen glands, others Endocrine: denies: excessive hunger, excessive sweating, excessive thirst, excessive urination, flushing, intolerance to cold, intolerance to heat, unexplained weight gain, unexplained weight loss, others Psychiatric: denies: anxiety, bipolar disorder, depression, hopeless, panic disorder, schizophrenia, sleepless, suicidal, others All Other Systems: Reviewed and Negative Physical Exam General Appearance: No Apparent Distress, Normal HEENT: Normal ENT Inspection, Pharynx Normal, TMs Normal Neck: Full Range of Motion, Non-Tender, Normal, Normal Inspection Respiratory: Chest Non-Tender, Lungs Clear, No Accessory Muscle Use, No Respiratory Distress, Normal Breath Sounds, Other (4L via Nasal Cannula) Cardiovascular: No Edema, No JVD, No Murmur, No Gallop, Normal Peripheral Pulses, Regular Rate/Rhythm Breast Exam: Deferred Gastrointestinal: Hernia (Large Ventral ), No Organomegaly, Non Tender, No Pulsatile Mass, Normal Bowel Sounds, Soft Genitalia: Deferred Pelvic: Deferred Rectal: Deferred Extremities: No calf tenderness, Normal capillary refill, Normal inspection, Normal range of motion, Non-tender, No pedal edema Musculoskeletal : Apperance: Normal Neurologic: Alert, 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 Was a procedure done?: No Differential Dx Differential Diagnosis: Asthma, Bronchitis, CHF, COPD, Myocardial infarction, Pneumonia, Respiratory Distress X-Ray, Labs, Meds, VS Vital Signs Date Time Temp Pulse Resp B/P (MAP) Pulse Ox O2 Delivery O2 Flow Rate FiO2 07/31/24 09:48 87 16 96 Nasal Cannula* 2 28 07/31/24 09:47 99.1 87 14 135/79 (97) 96 99.1 07/31/24 07:41 07/31/24 06:22 84 07/31/24 06:17 99.5 85 19 166/101 (122) 90 Lab Test 07/31/24 10:33 07/31/24 08:11 07/31/24 08:10 07/31/24 07:10 Range/Units Troponin I High Sensitivity 9 10 9 </=54 ng/L Urine Color Yellow Yellow Urine Clarity Clear Clear Urine pH 6.0 5.0-9.0 Urine Specific [place] 1.017 1.001-1.035 Urine Protein Negative Negative Urine Ketones Negative Negative Urine Blood Trace H Negative /uL Urine Nitrite Negative Negative Urine Bilirubin Negative Negative Urine Urobilinogen 12 H Negative mg/dL Urine Leukocyte Esterase Negative Negative /uL Urine RBC 2 0 - 3 /hpf Urine Microscopic WBC 1 0-3 /HPF Urine Squamous Epithelial Cells Few <5 /hpf Urine Bacteria None seen None Seen /hpf Urine Glucose Normal Normal mg/dL White Blood Count 11.0 H 4.4-10.8 10^3/uL Red Blood Count 4.33 L 4.5-5.90 10^6/uL Hemoglobin 13.3 L 13.5-17.5 g/dL Hematocrit 38.8 L 41.0-53.0 % Mean Corpuscular Volume 89.5 80.0-100.0 fL Mean Corpuscular Hemoglobin 30.6 28.0-32.0 pg Mean Corpuscular Hemoglobin Concent 34.2 32.0-36.0 g/dL Red Cell Distribution Width 12.8 11.8-14.3 % Platelet Count 83 L 140-450 10^3/uL Mean Platelet Volume 11.6 H 6.9-10.8 fL Neutrophils (%) (Auto) 83.7 H 37.0-80.0 % Lymphocytes (%) (Auto) 8.7 L 10.0-50.0 % Monocytes (%) (Auto) 7.1 0.0-12.0 % Eosinophils (%) (Auto) 0.2 0.0-7.0 % Basophils (%) (Auto) 0.3 0.0-2.0 % Neutrophils # (Auto) 9.2 H 1.6-8.6 10 ^3/uL Lymphocytes # (Auto) 1.0 0.4-5.4 10 ^3/uL Monocytes # (Auto) 0.8 0-1.3 10 ^3/uL Eosinophils # (Auto) 0 0-0.8 10 ^3/uL Basophils # (Auto) 0 0-0.2 10 ^3/uL Nucleated Red Blood Cells 0.0 % Sodium Level 136 136-145 mmol/L Potassium Level 3.3 L 3.5-5.1 mmol/L Chloride Level 101 98-107 mmol/L Carbon Dioxide Level 26 20-31 mmol/L Anion Gap 9 5-15 Blood Urea Nitrogen 12 9-23 mg/dL Creatinine 0.75 0.700-1.30 mg/dL Glomerular Filtration Rate Calc 100 >90 mL/min BUN/Creatinine Ratio 16.0 10.0-20.0 Serum Glucose 113 H 74-106 mg/dL Calcium Level 9.2 8.7-10.4 mg/dL Total Bilirubin 2.1 H 0.2-1.0 mg/dL Aspartate Amino Transferase (AST) 224 H 13-40 U/L Alanine Aminotransferase (ALT) 93 H 7-40 U/L Alkaline Phosphatase 134 H 46-116 U/L Total Protein 7.1 5.7-8.2 g/dL Albumin 4.5 3.2-4.8 g/dL Lipase 24 12-53 U/L PATIENT: JOHN ZAPATA ACCT: [id number] UNIT: [id number] : 1960 LOC: ER ROOM / BED: / AGE / SEX: 64 / M ADM STATUS: REG ER SERVICE 0658 ORDERING PHYSICIAN: LEOPOLDO SIMON MD PROCEDURE(s): CXR2 - CHEST TWO VIEWS ROUTINE REASON: ro pna ORDER NUMBER(s): [id number], ACCESSION NUMBER(s): [id number] XY CHEST TWO VIEWS ROUTINE CLINICAL HISTORY: ro pna COMPARISON: Chest radiograph dated 06/30/2024 TECHNIQUE: Frontal and lateral view of the chest was obtained FINDINGS: Lines and Tubes: None Lungs: No focal consolidation. Pleura: No effusion. No pneumothorax. Cardiomediastinal contours: Unremarkable Bones: No acute osseous abnormality. IMPRESSION: 1. No acute cardiopulmonary disease. ATED BY: OCHOA JENKINS MD DICTATED DATE/TIME: 07/31/24732 SIGNED BY: OCHOA JENKINS MD SIGNED DATE/TIME: 07/31/24732 64-year-old male presents here with shortness of breath. Patient was satting 90% on room air. Patient had multiple complaints including nausea vomiting, shortness of breath as well as chest pain. At this time troponin has been done which is negative. EKG demonstrates no significant ST changes. Chest x-ray with no evidence of pneumonia. However continues to be short of breath suspect likely COPD exacerbation. Patient also reports vomiting and nausea, suspect possible gastritis. At this time hospitalist team has been contacted for admission. Time of 1ST Reevaluation: 07:38 Reevaluation 1ST: Unchanged Patient Education/Counseling: Diagnosis, Treatment, Prognosis Family Education/Counseling: Diagnosis, Treatment, Prognosis Departure 1 Departure Time of Disposition: 09:08 Impression: Primary Impression: Ventral hernia Qualified Codes: K43.9 - Ventral hernia without obstruction or gangrene Additional Impressions: Gastritis Qualified Codes: K29.70 - Gastritis, unspecified, without bleeding Chest pain Qualified Codes: R07.9 - Chest pain, unspecified COPD exacerbation Hypokalemia Disposition: ADMITTED INPATIENT Admit to: Tele Condition: Fair Critical Care Note Critical Care Time?: No Stability Stability form required: No I personally scribed for LEOPOLDO SIMON MD ([email or web address]) on 07/31/24 at 07:41. Electronically submitted by Byron Guerin ([email or web address]). I personally scribed for LEOPOLDO SIMON MD ([email or web address]) on 07/31/24 at 07:45. Electronically submitted by Byron Guerin ([email or web address]). I personally scribed for LEOPOLDO SIMON MD ([facility] on 07/31/24 at 13:36. Electronically submitted by Byron Guerin ([email or web address]). LEOPOLDO SIMON MD Jul 31, 2024 07:41
[2024-07-31 07:43] LABS: Alanine Aminotransferase 93 U/L (7-40); Alkaline Phosphatase 134 U/L (46-116); Aspartate Aminotransferase 224 U/L (13-40); Bilirubin, Total 2.1 mg/dL (0.2-1.0); Glucose 113 mg/dL (74-106); Potassium 3.3 mmol/L (3.5-5.1)
[2024-07-31 08:49] LABS: Urine Bacteria None Seen /hpf (None Seen)
[2024-07-31 09:05] LABS: Urine Blood TRACE /uL (Negative); Urine Clarity Clear (Clear); Urine Color Yellow (Yellow); Urine Protein, UAD Negative (Negative); Urine Specific Gravity 1.017 (1.001-1.035); Urine Squamous Epithelial Cell FEW /hpf (<5); Urine Urobilinogen 12 mg/dL (Negative); Urine WBC 1 /HPF (0-3)
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
[2024-07-31] MEDS ORDERED: ONDANSETRON HCL 4 MG/2 ML VIAL IV PRN (14:45)
[2024-07-31] MEDS ORDERED: HYDROcodone-ACET 5/325MG TAB PO PRN (14:45)
[2024-07-31] MEDS ORDERED: MORPHINE SULFATE INJ 2 MG/ml SYRG IV PRN ×2 (14:45)
[2024-07-31] MEDS ORDERED: TEMAZEPAM 15 MG CAP PO PRN (14:45)
[2024-07-31] MEDS ORDERED: NITROGLYCERIN 0.4 MG SL TAB SL PRN (14:45)
[2024-07-31] MEDS ORDERED: DOCUSATE SOD 100 MG CAP PO PRN (14:45)
[2024-07-31] MEDS: ALBUTEROL SULF 2.5 MG/0.5ML(0.5%) NEB SOLN NEB SCH (20:02)
[2024-07-31] MEDS: IPRATROPIUM BROM 0.5 MG/2.5ML INH SOL NEB SCH (20:02)
[2024-07-31] MEDS: ATORVASTATIN 20 MG TAB PO SCH (21:55)
[2024-08-01] VITALS (14 sets, daily range): BP systolic 117–134; BP diastolic 66–86; PULSE 69–94; RESP 16–18; TEMP 97.8–99.1; O2SAT 92–100
[2024-08-01] MEDS: PANTOPRAZOLE 40 MG TAB PO SCH (06:26)
[2024-08-01 08:33] LABS: Basophils # (auto) 0 10 ^3/uL (0-0.2); Basophils % (auto) 0.5 % (0.0-2.0); Eosinophils # (auto) 0.1 10 ^3/uL (0-0.8); Eosinophils % (auto) 0.9 % (0.0-7.0); Hematocrit 35.7 % (41.0-53.0); Lymphocytes # (auto) 0.8 10 ^3/uL (0.4-5.4); Lymphocytes % (auto) 10.6 % (10.0-50.0); Mean Corpuscular Hemoglobin 30.7 pg (28.0-32.0); Mean Corpuscular Hgb Conc. 33.7 g/dL (32.0-36.0); Mean Corpuscular Volume 91.2 fL (80.0-100.0); Monocytes # (auto) 0.7 10 ^3/uL (0-1.3); Monocytes % (auto) 9.2 % (0.0-12.0); Neutrophils # (auto) 5.9 10 ^3/uL (1.6-8.6); Neutrophils % (auto) 78.8 % (37.0-80.0); Nucleated Red Blood Cells % 0.1 %; Platelet Count (auto) 68 10^3/uL (140-450); Red Blood Cells 3.91 10^6/uL (4.5-5.90); Red Cell Distribution Width 13.1 % (11.8-14.3); White Blood Cell 7.5 10^3/uL (4.4-10.8)
[2024-08-01 08:40] LABS: Albumin 4.1 g/dL (3.2-4.8); Alkaline Phosphatase 104 U/L (46-116); Anion Gap 8 (5-15); BUN/Creatinine Ratio 12.8 (10.0-20.0); Blood Urea Nitrogen 10 mg/dL (9-23); Calcium 8.8 mg/dL (8.7-10.4); Carbon Dioxide 27 mmol/L (20-31); Chloride 100 mmol/L (98-107)
[2024-08-01 08:41] LABS: Total Protein 6.8 g/dL (5.7-8.2)
[2024-08-01] MEDS: ASPirin 81 mg TAB PO SCH (08:44)
[2024-08-01] MEDS: ENOXAPARIN SOD 40 MG/0.4 ML SYRINGE SC SCH (08:47)
[2024-08-01] MEDS: FUROSEMIDE 20 MG TAB PO SCH (08:48)
[2024-08-01] MEDS: LISINOPRIL 20 MG TAB PO SCH (08:57)
[2024-08-01 09:02] LABS: Alanine Aminotransferase 76 U/L (7-40); Aspartate Aminotransferase 111 U/L (13-40); Bilirubin, Total 2.5 mg/dL (0.2-1.0); Glucose 131 mg/dL (74-106); Potassium 3.1 mmol/L (3.5-5.1); Sodium 135 mmol/L (136-145)
--- NOTE | 2024-08-01 13:53 | DVHPN2 ---
Assessment/Plan Assessment/Plan progress note 64M with copd on home o2, HFpEF, hernia admitted for COPD and abdominal discomfort. physical exam alert oriented coars breath sounds s1 s2 rrr abdomen soft nontender no le edema labs ekg reviewed assessment and plan chronic hypoxic respiratory failure on home O2 COPD group E with exacerbation abdominal hernia not incarcerated HFpEF not in exacerbation normocytic anemia hyponatremia likely hypervolemic hypokalemia maintain O2 2LPM or spo2 >88% pulm consult prednisone ceft azithro pain management advance diet as tolerated c/w lasix maintain -500 -1L diet cardiac dvt ppx lovenox Plan discussed with: Patient Date of Service: Aug 01, 2024 Billing Provider: ZACARIAS FORDE MD Common Visit Codes: [id number] INP/OBS CARE(HIGH) ZACARIAS FORDE MD Aug 01, 2024 13:53
[2024-08-01] MEDS: POTASSIUM EFFERVESENT TAB 25 MEQ PO ONE (16:23)
[2024-08-01 17:05] LABS: COVID19 ANTIGEN SOFIA FIA NEGATIVE (NEGATIVE); Rapid Influenza A Negative (Negative); Rapid Influenza B Negative (Negative)
[2024-08-01] MEDS: AZITHROMYCIN 500MG/ 250ML 250 ML IV ONE (19:30)
[2024-08-01] MEDS: cefTRIAXone 1GM/50ML D5W 50 ML IV ONE (20:13)
[2024-08-01] MEDS: predniSONE 20 MG TAB PO ONE (20:14)
[2024-08-01] MEDS: ACETAMINOPHEN 325 MG TAB PO PRN (22:24)
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
[2024-08-02] VITALS (22 sets, daily range): BP systolic 103–139; BP diastolic 63–74; PULSE 63–88; RESP 18–20; TEMP 97.5–98; O2SAT 93–100
[2024-08-02 06:27] LABS: Basophils # (auto) 0 10 ^3/uL (0-0.2); Basophils % (auto) 0.1 % (0.0-2.0); Eosinophils # (auto) 0 10 ^3/uL (0-0.8); Eosinophils % (auto) 0.1 % (0.0-7.0); Hematocrit 35.7 % (41.0-53.0); Lymphocytes # (auto) 0.8 10 ^3/uL (0.4-5.4); Lymphocytes % (auto) 17.3 % (10.0-50.0); Mean Corpuscular Hemoglobin 30.9 pg (28.0-32.0); Mean Corpuscular Hgb Conc. 33.8 g/dL (32.0-36.0); Mean Corpuscular Volume 91.6 fL (80.0-100.0); Monocytes # (auto) 0.4 10 ^3/uL (0-1.3); Monocytes % (auto) 7.8 % (0.0-12.0); Neutrophils # (auto) 3.4 10 ^3/uL (1.6-8.6); Neutrophils % (auto) 74.7 % (37.0-80.0); Platelet Count (auto) 60 10^3/uL (140-450); Red Cell Distribution Width 13.1 % (11.8-14.3); White Blood Cell 4.6 10^3/uL (4.4-10.8)
[2024-08-02 06:38] LABS: Calcium 9.1 mg/dL (8.7-10.4); Chloride 99 mmol/L (98-107); Potassium 3.9 mmol/L (3.5-5.1); Sodium 136 mmol/L (136-145)
[2024-08-02 06:39] LABS: Anion Gap 7 (5-15); Carbon Dioxide 30 mmol/L (20-31)
[2024-08-02 06:45] LABS: BUN/Creatinine Ratio 15.8 (10.0-20.0); Blood Urea Nitrogen 12 mg/dL (9-23)
[2024-08-02 06:53] LABS: Glucose 168 mg/dL (74-106)
[2024-08-02 06:54] LABS: Lactic Acid w/Reflex 2.7 mmol/L (0.4-2.0)
[2024-08-02 07:32] LABS: Platelet Estimate Decreased; RBC Morphology Normal
[2024-08-02 07:33] LABS: Giant Platelets Few
[2024-08-02] MEDS: SODIUM CHLORIDE 0.9% 500 ML IV ONE (09:15)
[2024-08-02] MEDS: predniSONE 20 MG TAB PO SCH (10:56)
[2024-08-02] MEDS ORDERED: MAALOX PLUS or MAALOX 30 ML PO PRN (11:45)
--- NOTE | 2024-08-02 11:46 | DVHPN2 ---
Assessment/Plan Assessment/Plan progress note 64M with copd on home o2, HFpEF, hernia admitted for COPD and abdominal discomfort. physical exam alert oriented coars breath sounds s1 s2 rrr abdomen soft nontender LE edema R>L labs ekg reviewed assessment and plan chronic hypoxic respiratory failure on home O2 COPD group E with exacerbation abdominal hernia not incarcerated HFpEF not in exacerbation normocytic anemia hyponatremia likely hypervolemic hypokalemia gerd maintain O2 2LPM or spo2 >88% pulm consult prednisone ceft azithro pain management advance diet as tolerated c/w lasix maintain -500 -1L protonix, maalox doppler LE diet cardiac dvt ppx lovenox Plan discussed with: Patient My Orders Orders - ZACARIAS FORDE MD Procedure Category Date Status Time *Consult CONS 08/01/24 Transmitted / 17:30 Prednisone Tablet PHA 08/02/24 In Process 10:00 Ceftriaxone 1gm/50ml PHA 08/02/24 In Process D5w (Rocephin) 21:00 Azithromycin 500mg/ PHA 08/02/24 In Process 250ml (Zithromax 50 21:00 Alum & Mag PHA 08/02/24 Logged Hydrox-Simethicone 11:45 Date of Service: Aug 02, 2024 Billing Provider: ZACARIAS FORDE MD Common Visit Codes: [id number] INP/OBS CARE(HIGH) ZACARIAS FORDE MD Aug 02, 2024 11:46
--- NOTE | 2024-08-02 13:32 | DVH ---
Bilateral lower extremity venous duplex Clinical History: asymetric swelling Comparison: None Technique: Duplex Doppler evaluation of the deep venous systems of both lower extremities from the common femora l veins to the popliteal veins including color Doppler and spectral/pulsed waveform analysis was perf ormed. Findings: RIGHT SIDE: The common femoral vein demonstrates appropriate compressibility and waveform variability. There is compressibility/patency of the great saphenous vein at the proximal thigh. The femoral vein demonstrates appropriate compressibility and waveform variability. The deep femoral vein demonstrates appropriate compressibility and waveform variability. The popliteal vein demonstrates appropriate compressibility and waveform variability. There is normal compressibility at the tibioperoneal trunk. LEFT SIDE: The common femoral vein demonstrates appropriate compressibility and waveform variability. There is compressibility/patency of the great saphenous vein at the proximal thigh. The femoral vein demonstrates appropriate compressibility and waveform variability. The deep femoral vein demonstrates appropriate compressibility and waveform variability. The popliteal vein demonstrates appropriate compressibility and waveform variability. There is normal compressibility at the tibioperoneal trunk. Impression: No right or left femoropopliteal venous thrombosis.
[2024-08-02] MEDS: cefTRIAXone 1GM/50ML D5W 50 ML IV SCH (20:27)
[2024-08-02] MEDS: AZITHROMYCIN 500MG/ 250ML 250 ML IV SCH (21:00)
--- NOTE | 2024-08-02 23:06 | DVHPN2 ---
Progress Note - Dictate Date Seen: Aug 02, 2024 Medical Necessity Reason Pt with a Central, PICC or Fol: No Subjective Patient seen and examined at bedside. Remains on supplemental oxygen Overnight events reviewed. vital signs Vital Sign Date Time Temp Pulse Resp B/P (MAP) Pulse Ox O2 Delivery O2 Flow Rate FiO2 08/02/24 22:59 99 Nasal Cannula* 2 28 08/02/24 20:05 79 20 08/02/24 17:00 97.6 139/65 (89) 97.6 Total Intake and Output 08/01/24 08/01/24 08/02/24 15:00 23:00 07:00 Intake Total 300 ml 800 ml Balance 300 ml 800 ml medications Current Medications Medications Dose Ordered Sig/Shekhar Route Start Time Stop Time Status Last Admin Dose Admin Acetaminophen 650 mg Q6HP PRN PO 07/31/24 14:45 08/02/24 17:08 650 MG Enoxaparin Sodium 40 mg DAILY SC 08/01/24 10:00 Lisinopril 20 mg DAILY PO 08/01/24 10:00 08/02/24 10:54 20 MG Atorvastatin Calcium 40 mg HS PO 07/31/24 22:00 08/02/24 22:03 40 MG Aspirin 81 mg DAILY PO 08/01/24 10:00 Albuterol 2.5 mg Q4HWA [facility] 07/31/24 18:00 08/02/24 19:59 2.5 MG Ipratropium [place] 0.5 mg Q4HWA [facility] 07/31/24 18:00 08/02/24 19:59 0.5 MG Furosemide 20 mg DAILY PO 08/01/24 10:00 08/02/24 10:54 20 MG Pantoprazole Sodium 40 mg DAILY@0600 PO 08/01/24 06:00 08/02/24 05:34 40 MG Prednisone 40 mg DAILY PO 08/02/24 10:00 08/02/24 10:56 40 MG Ceftriaxone Sodium 50 ml @ 100 mls/hr Q24H IV 08/02/24 21:00 08/02/24 20:27 100 MLS/HR Azithromycin 250 ml @ 125 mls/hr Q24H IV 08/02/24 21:00 08/02/24 21:00 125 MLS/HR Al Hydrox/Mg Hydrox/Simethicone 15 ml Q8HP PRN PO 08/02/24 11:45 objective Gen.: Patient lying in bed in no apparent distress. On supplemental oxygen. Head: Normocephalic, atraumatic. Eyes: EOMI/PERRLA. Ears: Normal hearing. Normal anatomy. Neck/trachea: Trachea midline, supple. Nose: Normal external anatomy. Mouth: Moist mucous membranes. Chest: Decreased air entry bilaterally. No wheezing or rhonchi. Cardiovascular: Positive S1, positive S2. Regular rate and rhythm. Abdomen: Positive bowel sounds in all 4 quadrants. Soft, non-tender, non- distended. : Deferred. Rectal: Deferred. Skin: Warm, dry. Intact. Extremities: 2+ radial pulses bilaterally. No lower extremity edema. Neuro: Awake, alert, oriented x3. No gross motor or sensory deficits. Cranial nerves II through XII intact. Gait not assessed. laboratory and microbiology Laboratory Tests 08/02/24 06:00 Test 08/02/24 06:00 Range/Units Serum Glucose 168 H 74-106 mg/dL Assessment/Plan Impression: Acute on chronic hypoxic respiratory failure Dependence on supplemental oxygen Acute COPD exacerbation Congestive heart failure Hypertension Normocytic anemia Hx of nicotine dependence Events: Remains on supplemental oxygen, 2 LPM NC Taper O2 as tolerated Improving O2 requirements Continue bronchodilators Continue antibiotics Incentive spirometry Diurese to euvolemia w/ Lasix Monitor renal function. Monitor electrolytes. Supplement as necessary. Labs and imaging reviewed. Rest of plan as noted below. Plan: Supplemental oxygen Titrate to keep O2 sats above 92%. Chest x-ray reveals no focal opacities, pleural effusion or pneumothorax COVID, influenza negative. Continue bronchodilators Continue antibiotics Incentive spirometry Diurese to euvolemia w/ Lasix Monitor renal function. Monitor electrolytes. Supplement as necessary. Monitor ins and outs. GI prophylaxis - Protonix DVT prophylaxis - Lovenox. Prognosis: Poor given patient's multiple co-morbidities. Rest of plan per hospitalist and other consultants. Thank you Dr Silverio for allowing me to participate in this patient's care. Further recommendations will depend on the patient's clinical course. Please do not hesitate to contact me if you have any questions or concerns. This medical document was created using an electronic medical record system with [employer] system. Although these documentations are being carefully reviewed, there may still be some phonetic and typographical changes. The errors are purely typographical, due to imperfection on the software program, and do not reflect any compromise in the patient's medical care. Plan discussed with: Patient, Other (TAYA Scales) MASSIMO ALMAZAN MD Aug 02, 2024 23:06
[2024-08-03] VITALS (15 sets, daily range): BP systolic 115–128; BP diastolic 64–81; PULSE 56–70; RESP 14–19; TEMP 97.4–97.6; O2SAT 93–100
[2024-08-03 06:55] LABS: Basophils # (auto) 0 10 ^3/uL (0-0.2); Basophils % (auto) 0.2 % (0.0-2.0); Eosinophils # (auto) 0.1 10 ^3/uL (0-0.8); Eosinophils % (auto) 0.9 % (0.0-7.0); Hematocrit 36.8 % (41.0-53.0); Hemoglobin 12.6 g/dL (13.5-17.5); Lymphocytes # (auto) 1.5 10 ^3/uL (0.4-5.4); Mean Corpuscular Hemoglobin 31.1 pg (28.0-32.0); Mean Corpuscular Hgb Conc. 34.1 g/dL (32.0-36.0); Mean Corpuscular Volume 91.1 fL (80.0-100.0); Monocytes # (auto) 1.2 10 ^3/uL (0-1.3); Monocytes % (auto) 13.1 % (0.0-12.0); Neutrophils # (auto) 6.4 10 ^3/uL (1.6-8.6); Neutrophils % (auto) 69.8 % (37.0-80.0); Nucleated Red Blood Cells % 0.1 %; Platelet Count (auto) 87 10^3/uL (140-450); Red Blood Cells 4.04 10^6/uL (4.5-5.90); White Blood Cell 9.2 10^3/uL (4.4-10.8)
[2024-08-03 07:04] LABS: Anion Gap 8 (5-15); Carbon Dioxide 30 mmol/L (20-31); Chloride 99 mmol/L (98-107); Potassium 3.6 mmol/L (3.5-5.1); Sodium 137 mmol/L (136-145)
[2024-08-03 07:05] LABS: Calcium 9.6 mg/dL (8.7-10.4)
[2024-08-03 07:10] LABS: BUN/Creatinine Ratio 17.1 (10.0-20.0); Blood Urea Nitrogen 13 mg/dL (9-23); Glucose 89 mg/dL (74-106)
--- NOTE | 2024-08-03 12:23 | DVHPN2 ---
Assessment/Plan Assessment/Plan progress note 64M with copd on home o2, HFpEF, hernia admitted for COPD and abdominal discomfort. seen today during rounds. improving restarting home methadone physical exam alert oriented coars breath sounds s1 s2 rrr abdomen soft nontender LE edema R>L labs ekg reviewed assessment and plan chronic hypoxic respiratory failure on home O2 COPD group E with exacerbation abdominal hernia not incarcerated HFpEF not in exacerbation normocytic anemia hyponatremia likely hypervolemic hypokalemia gerd MMTP maintain O2 2LPM or spo2 >88% pulm consult prednisone ceft doxy watch qtc pain management advance diet as tolerated c/w lasix maintain -500 -1L protonix, maalox doppler LE wnl resume methadone diet cardiac dvt ppx lovenox Plan discussed with: Patient My Orders Orders - ZACARIAS FORDE MD Procedure Category Date Status Time Methadone Hcl Tablet PHA 08/04/24 Logged (Methadone Hcl Tabl 10:00 Date of Service: Aug 03, 2024 Billing Provider: ZACARIAS FORDE MD Common Visit Codes: [id number] INP/OBS CARE(HIGH) ZACARIAS FORDE MD Aug 03, 2024 12:23
[2024-08-03] MEDS: DOXYCYCLINE 100MG/100ML 100 ML IV SCH (13:46)
[2024-08-03] MEDS: METHADONE HCL 10 MG TAB PO SCH (13:47)
--- NOTE | 2024-08-03 20:49 | DVHPN2 ---
Progress Note - Dictate Date Seen: Aug 03, 2024 Medical Necessity Reason Pt with a Central, PICC or Fol: No Subjective Patient seen and examined at bedside. Remains on supplemental oxygen Overnight events reviewed. vital signs Vital Sign Date Time Temp Pulse Resp B/P (MAP) Pulse Ox O2 Delivery O2 Flow Rate FiO2 08/03/24 19:19 93 Nasal Cannula 3.0 08/03/24 19:19 32 08/03/24 19:19 66 14 08/03/24 17:08 97.5 128/75 (92) 97.5 Total Intake and Output 08/02/24 08/02/24 08/03/24 15:00 23:00 07:00 Intake Total 500 ml 725 ml 800 ml Output Total 300 ml 1200 ml Balance 500 ml 425 ml -400 ml medications Current Medications Medications Dose Ordered Sig/Shekhar Route Start Time Stop Time Status Last Admin Dose Admin Acetaminophen 650 mg Q6HP PRN PO 07/31/24 14:45 08/03/24 20:34 650 MG Enoxaparin Sodium 40 mg DAILY SC 08/01/24 10:00 Lisinopril 20 mg DAILY PO 08/01/24 10:00 08/03/24 11:09 20 MG Atorvastatin Calcium 40 mg HS PO 07/31/24 22:00 08/02/24 22:03 40 MG Aspirin 81 mg DAILY PO 08/01/24 10:00 08/03/24 12:16 81 MG Albuterol 2.5 mg Q4HWA NEB 07/31/24 18:00 08/03/24 19:17 2.5 MG Ipratropium [place] 0.5 mg Q4HWA NEB 07/31/24 18:00 08/03/24 19:17 0.5 MG Furosemide 20 mg DAILY PO 08/01/24 10:00 08/03/24 11:08 20 MG Pantoprazole Sodium 40 mg DAILY@0600 PO 08/01/24 06:00 08/03/24 05:49 40 MG Prednisone 40 mg DAILY PO 08/02/24 10:00 08/03/24 11:09 40 MG Ceftriaxone Sodium 50 ml @ 100 mls/hr Q24H IV 08/02/24 21:00 08/02/24 20:27 100 MLS/HR Al Hydrox/Mg Hydrox/Simethicone 15 ml Q8HP PRN PO 08/02/24 11:45 Doxycycline Hyclate 100 ml @ 50 mls/hr Q12H IV 08/03/24 12:30 08/03/24 13:46 50 MLS/HR Methadone HCl 110 mg DAILY PO 08/03/24 13:30 08/03/24 13:47 110 MG objective Gen.: Patient lying in bed in no apparent distress. On supplemental oxygen. Head: Normocephalic, atraumatic. Eyes: EOMI/PERRLA. Ears: Normal hearing. Normal anatomy. Neck/trachea: Trachea midline, supple. Nose: Normal external anatomy. Mouth: Moist mucous membranes. Chest: Decreased air entry bilaterally. No wheezing or rhonchi. Cardiovascular: Positive S1, positive S2. Regular rate and rhythm. Abdomen: Positive bowel sounds in all 4 quadrants. Soft, non-tender, non- distended. : Deferred. Rectal: Deferred. Skin: Warm, dry. Intact. Extremities: 2+ radial pulses bilaterally. No lower extremity edema. Neuro: Awake, alert, oriented x3. No gross motor or sensory deficits. Cranial nerves II through XII intact. Gait not assessed. laboratory and microbiology Laboratory Tests 08/03/24 06:25 Test 08/03/24 06:25 Range/Units Serum Glucose 89 74-106 mg/dL Assessment/Plan Impression: Acute on chronic hypoxic respiratory failure Dependence on supplemental oxygen Acute COPD exacerbation Congestive heart failure Hypertension Normocytic anemia Hx of nicotine dependence Events: Remains on supplemental oxygen, 2 LPM NC Taper O2 as tolerated Improved O2 requirements Continue bronchodilators Continue steroids Continue antibiotics Incentive spirometry On methadone Diurese to euvolemia w/ Lasix PO Monitor renal function. Monitor electrolytes. Supplement as necessary. Bilateral lower extremity venous duplex revealed no right or left femoropopliteal venous thrombosis. Labs and imaging reviewed. Rest of plan as noted below. Plan: Supplemental oxygen Titrate to keep O2 sats above 92%. Chest x-ray revealed no focal opacities, pleural effusion or pneumothorax COVID, influenza negative. Continue bronchodilators Continue antibiotics Incentive spirometry Diurese to euvolemia w/ Lasix Monitor renal function. Monitor electrolytes. Supplement as necessary. Monitor ins and outs. GI prophylaxis - Protonix DVT prophylaxis - Lovenox. Prognosis: Poor given patient's multiple co-morbidities. Rest of plan per hospitalist and other consultants. Thank you Dr Silverio for allowing me to participate in this patient's care. Further recommendations will depend on the patient's clinical course. Please do not hesitate to contact me if you have any questions or concerns. This medical document was created using an electronic medical record system with datatracker dictation system. Although these documentations are being carefully reviewed, there may still be some phonetic and typographical changes. The errors are purely typographical, due to imperfection on the software program, and do not reflect any compromise in the patient's medical care. Plan discussed with: Patient, Other (TAYA Stovall) MASSIMO ALMAZAN MD Aug 03, 2024 20:49
[2024-08-04] VITALS (18 sets, daily range): BP systolic 111–146; BP diastolic 71–79; PULSE 60–75; RESP 14–75; TEMP 97.4–98; O2SAT 92–100
[2024-08-04 07:39] LABS: Anion Gap 5 (5-15); Carbon Dioxide 30 mmol/L (20-31); Chloride 102 mmol/L (98-107); Sodium 137 mmol/L (136-145)
[2024-08-04 07:40] LABS: Calcium 9.5 mg/dL (8.7-10.4)
[2024-08-04 07:45] LABS: BUN/Creatinine Ratio 17.5 (10.0-20.0); Blood Urea Nitrogen 11 mg/dL (9-23); Glucose 104 mg/dL (74-106)
[2024-08-04 07:47] LABS: Basophils # (auto) 0 10 ^3/uL (0-0.2); Basophils % (auto) 0.1 % (0.0-2.0); Eosinophils # (auto) 0.1 10 ^3/uL (0-0.8); Eosinophils % (auto) 0.8 % (0.0-7.0); Hematocrit 37.5 % (41.0-53.0); Hemoglobin 12.2 g/dL (13.5-17.5); Lymphocytes # (auto) 1.7 10 ^3/uL (0.4-5.4); Lymphocytes % (auto) 25.5 % (10.0-50.0); Mean Corpuscular Hemoglobin 30.3 pg (28.0-32.0); Mean Corpuscular Hgb Conc. 32.5 g/dL (32.0-36.0); Mean Corpuscular Volume 93.2 fL (80.0-100.0); Monocytes % (auto) 15.7 % (0.0-12.0); Neutrophils # (auto) 3.8 10 ^3/uL (1.6-8.6); Neutrophils % (auto) 57.9 % (37.0-80.0); Platelet Count (auto) 95 10^3/uL (140-450); Red Blood Cells 4.03 10^6/uL (4.5-5.90); Red Cell Distribution Width 12.9 % (11.8-14.3); White Blood Cell 6.5 10^3/uL (4.4-10.8)
[2024-08-04] MEDS ORDERED: METHADONE HCL 10 MG TAB PO SCH (10:00)
[2024-08-04] MEDS ORDERED: LEVO500T91 PO (15:19)
[2024-08-04] MEDS ORDERED: FURO20TA3 PO (15:19)
[2024-08-04] MEDS ORDERED: PRED20TA2 PO (15:19)
--- NOTE | 2024-08-04 15:20 | DVHDS2 ---
Discharge Summary Date of Admission Jul 31, 2024 at 14:35 Date of Discharge: Aug 04, 2024 Labs/Diagnostic Data: Laboratory Results Test 08/04/24 06:59 08/02/24 08:56 08/02/24 06:00 08/01/24 16:00 White Blood Count 6.5 10^3/uL (4.4-10.8) Red Blood Count 4.03 10^6/uL (4.5-5.90) Hemoglobin 12.2 g/dL (13.5-17.5) Hematocrit 37.5 % (41.0-53.0) Mean Corpuscular Volume 93.2 fL (80.0-100.0) Mean Corpuscular Hemoglobin 30.3 pg (28.0-32.0) Mean Corpuscular Hemoglobin Concent 32.5 g/dL (32.0-36.0) Red Cell Distribution Width 12.9 % (11.8-14.3) Platelet Count 95 10^3/uL (140-450) Mean Platelet Volume 11.9 fL (6.9-10.8) Neutrophils (%) (Auto) 57.9 % (37.0-80.0) Lymphocytes (%) (Auto) 25.5 % (10.0-50.0) Monocytes (%) (Auto) 15.7 % (0.0-12.0) Eosinophils (%) (Auto) 0.8 % (0.0-7.0) Basophils (%) (Auto) 0.1 % (0.0-2.0) Neutrophils # (Auto) 3.8 10 ^3/uL (1.6-8.6) Lymphocytes # (Auto) 1.7 10 ^3/uL (0.4-5.4) Monocytes # (Auto) 1.0 10 ^3/uL (0-1.3) Eosinophils # (Auto) 0.1 10 ^3/uL (0-0.8) Basophils # (Auto) 0 10 ^3/uL (0-0.2) Nucleated Red Blood Cells 0.0 % Sodium Level 137 mmol/L (136-145) Potassium Level 4.0 mmol/L (3.5-5.1) Chloride Level 102 mmol/L (98-107) Carbon Dioxide Level 30 mmol/L (20-31) Anion Gap 5 (5-15) Blood Urea Nitrogen 11 mg/dL (9-23) Creatinine 0.63 mg/dL (0.700-1.30) Glomerular Filtration Rate Calc 105 mL/min (>90) BUN/Creatinine Ratio 17.5 (10.0-20.0) Serum Glucose 104 mg/dL (74-106) Calcium Level 9.5 mg/dL (8.7-10.4) Lactic Acid Level 2.5 mmol/L (0.4-2.0) Platelet Estimate Decreased Giant Platelets Few Red Blood Cell Morphology Normal Influenza Type A Antigen Negative (Negative) Influenza Type B Antigen Negative (Negative) SARS-CoV-2 Antigen (Rapid) Negative (NEGATIVE) Test 08/01/24 08:10 07/31/24 10:33 07/31/24 08:11 07/31/24 07:10 Total Bilirubin 2.5 mg/dL (0.2-1.0) Aspartate Amino Transferase (AST) 111 U/L (13-40) Alanine Aminotransferase (ALT) 76 U/L (7-40) Alkaline Phosphatase 104 U/L (46-116) Total Protein 6.8 g/dL (5.7-8.2) Albumin 4.1 g/dL (3.2-4.8) Troponin I High Sensitivity 9 ng/L (</=54) Urine Color Yellow (Yellow) Urine Clarity Clear (Clear) Urine pH 6.0 (5.0-9.0) Urine Specific [place] 1.017 (1.001-1.035) Urine Protein Negative (Negative) Urine Ketones Negative (Negative) Urine Blood Trace /uL (Negative) Urine Nitrite Negative (Negative) Urine Bilirubin Negative (Negative) Urine Urobilinogen 12 mg/dL (Negative) Urine Leukocyte Esterase Negative /uL (Negative) Urine RBC 2 /hpf (0 - 3) Urine Microscopic WBC 1 /HPF (0-3) Urine Squamous Epithelial Cells Few /hpf (<5) Urine Bacteria None seen /hpf (None Seen) Urine Glucose Normal mg/dL (Normal) Lipase 24 U/L (12-53) Other Laboratory Tests 08/04/24 06:59 Brief Hx & Hospital Course: 64 yo M with CHF COPD on home O2 admitted for COPD exacerbation and CHF exacerbation. Patient had hypoxic RF. started on breathing treatments, lasix, prednisone and abx. seen by ppulmonary. after improvement transitioned to oral steroid and diuretics for home. Condition at Discharge: Good Final Diagnosis/Problems List chronic hypoxic respiratory failure on home O2 COPD group E with exacerbation abdominal hernia not incarcerated HFpEF not in exacerbation normocytic anemia hyponatremia likely hypervolemic hypokalemia gerd MMTP Discharge Disposition: Home Discharge Instruct/Medications Diet: Consistent carbohydrate, Cardiac 2g Na,low cholest Activity: No Restrictions, As Tolerated Follow Up/Referral: pulmonary cardiology PCP Medications: lasix levofloxacin prednisone 39 Discharge Statement: "Patient was advised to return to the ER or call 911 if any headaches, dizziness, shortness of breath, chest pain, abdominal pain, bleeding, fevers, or worsening of medical condition. Patient was counseled about treatment plan, medications, possible side effects, patientverbalized understanding. All questions were answered to the best of my ability. This discharge took greater then 30 minutes in planning, reviewing documentation, counseling the patient, and discussing with other team members." ASSESSMENT ASSESSMENT Assessment COPDe PNA CHFe Date of Service: Aug 04, 2024 Billing Provider: ZACARIAS FORDE MD Common Visit Codes: 75126-QNU/OBS DISCH DAY >30min ZACARIAS FORDE MD Aug 04, 2024 15:20
--- NOTE | 2024-08-04 21:05 | DVHPN2 ---
Progress Note - Dictate Date Seen: Aug 04, 2024 Medical Necessity Reason Pt with a Central, PICC or Fol: No Subjective Patient seen and examined at bedside. Remains on supplemental oxygen Overnight events reviewed. vital signs Vital Sign Date Time Temp Pulse Resp B/P (MAP) Pulse Ox O2 Delivery O2 Flow Rate FiO2 08/04/24 16:13 97.4 75 75 97 08/04/24 14:12 Nasal Cannula* 2 28 08/04/24 12:32 146/79 (101) Total Intake and Output 08/03/24 08/03/24 08/04/24 15:00 23:00 07:00 Intake Total 1000 ml 800 ml Output Total 1100 ml 600 ml Balance -100 ml 200 ml objective Gen.: Patient lying in bed in no apparent distress. On supplemental oxygen. Head: Normocephalic, atraumatic. Eyes: EOMI/PERRLA. Ears: Normal hearing. Normal anatomy. Neck/trachea: Trachea midline, supple. Nose: Normal external anatomy. Mouth: Moist mucous membranes. Chest: Decreased air entry bilaterally. No wheezing or rhonchi. Cardiovascular: Positive S1, positive S2. Regular rate and rhythm. Abdomen: Positive bowel sounds in all 4 quadrants. Soft, non-tender, non- distended. : Deferred. Rectal: Deferred. Skin: Warm, dry. Intact. Extremities: 2+ radial pulses bilaterally. No lower extremity edema. Neuro: Awake, alert, oriented x3. No gross motor or sensory deficits. Cranial nerves II through XII intact. Gait not assessed. laboratory and microbiology Laboratory Tests 08/04/24 06:59 Test 08/04/24 06:59 Range/Units Serum Glucose 104 74-106 mg/dL Assessment/Plan Impression: Acute on chronic hypoxic respiratory failure Dependence on supplemental oxygen Acute COPD exacerbation Congestive heart failure Hypertension Normocytic anemia Hx of nicotine dependence Events: Remains on supplemental oxygen, 2 LPM NC Taper O2 as tolerated Continue bronchodilators Continue antibiotics Incentive spirometry On methadone Diurese to euvolemia w/ Lasix PO Monitor renal function. Monitor electrolytes. Supplement as necessary. Patient is stable for discharge from the pulmonary standpoint. Follow up in 2 weeks in Pulmonary Clinic. Labs and imaging reviewed. Rest of plan as noted below. Plan: Supplemental oxygen Titrate to keep O2 sats above 92%. Chest x-ray revealed no focal opacities, pleural effusion or pneumothorax COVID, influenza negative. Continue bronchodilators Continue antibiotics Incentive spirometry Diurese to euvolemia w/ Lasix Monitor renal function. Monitor electrolytes. Supplement as necessary. Monitor ins and outs. GI prophylaxis - Protonix DVT prophylaxis - Lovenox. Prognosis: Guarded given patient's multiple co-morbidities. Rest of plan per hospitalist and other consultants. Thank you Dr Silverio for allowing me to participate in this patient's care. Further recommendations will depend on the patient's clinical course. Please do not hesitate to contact me if you have any questions or concerns. This medical document was created using an electronic medical record system with Babybe dictation system. Although these documentations are being carefully reviewed, there may still be some phonetic and typographical changes. The errors are purely typographical, due to imperfection on the software program, and do not reflect any compromise in the patient's medical care. Plan discussed with: Patient, Other (TAYA Stovall) MASSIMO ALMAZNA MD Aug 04, 2024 21:05
== END 2024-08-04 16:40 | disposition home or self-care (01) | DRG 133 ==
LOC: ER 06:17 → EDSEX 06:17 → EDBD 06:17 → TELE 14:35 → TELE-EAST 08-01 18:40 → OVERFLOW 08-04 15:16 → EAST 08-04 15:24
PROVIDERS: ADMIT Student in an Organized Health Care Education/Training Program; ATTEND Student in an Organized Health Care Education/Training Program
DX: J96.21 Acute and chronic respiratory failure with hypoxia (principal); I50.30 Unspecified diastolic (congestive) heart failure; I11.0 Hypertensive heart disease with heart failure; E87.1 Hypo-osmolality and hyponatremia; Z99.81 Dependence on supplemental oxygen; J12.9 Viral pneumonia, unspecified; J44.0 Chronic obstructive pulmonary disease with (acute) lower respiratory infection; J44.1 Chronic obstructive pulmonary disease with (acute) exacerbation; D64.9 Anemia, unspecified; K21.9 Gastro-esophageal reflux disease without esophagitis; E87.6 Hypokalemia; Z20.822 Contact with and (suspected) exposure to COVID-19; K43.9 Ventral hernia without obstruction or gangrene; K29.70 Gastritis, unspecified, without bleeding; F14.90 Cocaine use, unspecified, uncomplicated; Z83.3 Family history of diabetes mellitus; Z86.73 Personal history of transient ischemic attack (TIA), and cerebral infarction without residual deficits; Z87.891 Personal history of nicotine dependence
CPT/HCPCS: 36415; 71046; 80048; 80053; 81001; 83605; 83690; 84484; 85025; 87426; 87804; 93005; 93970; 94640; G0378; J2405

== ENCOUNTER 2024-08-18 06:06 | Inpatient (IN) | payer MEDICAID ==
[~2024-08-18] VITALS: Ht 172.7 cm; Wt 137.0 kg
[~2024-08-18 06:06] MED LIST changes: -AZIT500T66 PO; -CEPH250C PO; -FAMO40TA7 PO; +FURO20TA3 PO; -IPRA0.00 IN; +LEVO500T91 PO
--- NOTE | 2024-08-18 06:45 | ECG ---
[facility] Test Date: 2024-08-18 Test Time: 06:07:21 Pat Name: JOHN ZAPATA Department: ED Room: 0250T Gender: M Belt Builder: THO : 1960 Requested By: HANK COUGHLIN Order Number: [id number] Reading MD: James Cardenas Measurements Intervals [place] Rate: 62 P: 53 OK: 186 QRS: -16 QRSD: 102 T: 50 QT: 433 QTc: 440 Interpretive Statements Sinus rhythm Borderline left axis deviation Electronically Signed On 08-22-2024 17:27:17 PST by James Cardenas Please click the below link to view image of tracing.
--- NOTE | 2024-08-18 07:04 | ECG ---
[facility] Test Date: 2024-08-18 Test Time: 07:02:27 Pat Name: JOHN ZAPATA Department: ED Room: 0250T Gender: M Actuary: THO : 1960 Requested By: HANK COUGHLIN Order Number: [id number] Reading MD: James Cardenas Measurements Intervals [place] Rate: 64 P: 58 WA: 206 QRS: -26 QRSD: 95 T: 49 QT: 417 QTc: 431 Interpretive Statements Sinus rhythm Borderline left axis deviation Abnormal R-wave progression, late transition Baseline wander in lead(s) V4 Electronically Signed On 08-22-2024 17:27:23 PST by James Cardenas Please click the below link to view image of tracing.
--- NOTE | 2024-08-18 07:18 | ED.PDOC ---
HPI Comments 64 year old male brought in by EMS presents to the ED with a chief complaint of chest pain onset today (08/18/2024) around 00:00. Patient states he was sleeping when he woke up around midnight experiencing chest pain, described as a sharp/stabbing sensation, rates pain 6/10. PMHx of CVA with RT sided weakness, CHF, COPD, HTN. Denies fever, chills, nausea, vomiting, diarrhea, shortness of breath, cough, congestion, abdominal pain, dizziness, headache. No other symptoms or modifying factors present at this time. Chief Complaint: Chest Pain Time Seen by MD: 06:05 Reviewed Notes: Medications, Allergies Allergies: Coded Allergies: NO KNOWN ALLERGIES (Unverified , 05/29/24) Home Meds Active Scripts Levofloxacin Hemihydrate (LEVOFLOXACIN) 500 Mg Tab, 1 TAB PO DAILY for 5 Days, #5 TAB Prov:ZACARIAS FORDE MD 08/04/24 Prednisone (Prednisone) 20 Mg Tab, 40 MG PO DAILY for 3 Days, #6 MG Prov:ZACARIAS FORDE MD 08/04/24 Furosemide (Furosemide) 20 Mg Tab, 1 TAB PO DAILY, #30 TAB 1 Refill Prov:ZACARIAS FORDE MD 08/04/24 Losartan Potassium (Losartan Potassium) 50 Mg Tab, 1 TAB PO DAILY, #30 TAB 1 Refill Prov:ELIS CHOUDHURY MD 07/02/24 Atorvastatin Calcium (ATORVASTATIN CALCIUM) 40 Mg Tab, 40 MG PO DAILY for 30 Days, #30 TAB 2 Refills Prov:CORNELL ARIAS 10/11/23 Information Source: Patient, Emergency Med Personnel Mode of Arrival: EMS Severity: Moderate Timing: Hours Duration: Since onset Prehospital treatment: None Location: Chest (L) Radiation: No Radiation Quality: Sharp, Stabbing Onset: At Rest Cardiac Risk Factors: HTN PE Risk Factors: None History of: None Modifying Factors: Nothing Associated Signs and Symptoms: None Past Medical History PAST MEDICAL HISTORY: CHF, COPD, CVA, HTN Surgical History: Denies all surgeries Family History Family History: Reviewed,noncontributory to illness Social History Smoker: Non-Smoker Alcohol: Denies ETOH Use Drugs: Denies Drug Use Lives In: Home Cardiovascular: reports: chest pain Physical Exam General Appearance: No Apparent Distress, Normal HEENT: Normal ENT Inspection, Pharynx Normal, TMs Normal Neck: Full Range of Motion, Non-Tender, Normal, Normal Inspection Respiratory: Chest Non-Tender, Lungs Clear, No Accessory Muscle Use, No Respiratory Distress, Normal Breath Sounds Cardiovascular: No Edema, No JVD, No Murmur, No Gallop, Normal Peripheral Pulses, Regular Rate/Rhythm Breast Exam: Deferred Gastrointestinal: No Organomegaly, Non Tender, No Pulsatile Mass, Normal Bowel Sounds, Soft Genitalia: Deferred Pelvic: Deferred Rectal: Deferred Extremities: No calf tenderness, Normal capillary refill, Normal inspection, Normal range of motion, Non-tender, No pedal edema Musculoskeletal : Apperance: Normal Neurologic: Alert, standards engineer II-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 Was a procedure done?: No CP Differential Dx Differential Diagnosis: MAT, AL Differential Diagnosis: HTN Essential, HTN Accelerated Differential Diagnosis: Gastritis, Myocardial Infarction, Pericarditis X-Ray, Labs, Meds, VS Vital Signs Date Time Temp Pulse Resp B/P (MAP) Pulse Ox O2 Delivery O2 Flow Rate FiO2 08/18/24 09:44 62 17 107/71 (83) 98 08/18/24 09:08 61 08/18/24 07:22 Room Air* 0 21 08/18/24 07:21 97.9 70 17 100/65 (77) 98 97.9 08/18/24 07:02 64 08/18/24 06:20 97.7 64 16 93/60 (71) 94 08/18/24 06:07 62 Lab Test 08/18/24 09:37 08/18/24 07:42 08/18/24 06:35 Range/Units White Blood Count 7.8 4.4-10.8 10^3/uL Red Blood Count 4.36 L 4.5-5.90 10^6/uL Hemoglobin 12.9 L 13.5-17.5 g/dL Hematocrit 40.5 L 41.0-53.0 % Mean Corpuscular Volume 92.9 80.0-100.0 fL Mean Corpuscular Hemoglobin 29.6 28.0-32.0 pg Mean Corpuscular Hemoglobin Concent 31.9 L 32.0-36.0 g/dL Red Cell Distribution Width 13.2 11.8-14.3 % Platelet Count 109 L 140-450 10^3/uL Mean Platelet Volume 11.5 H 6.9-10.8 fL Neutrophils (%) (Auto) 59.7 37.0-80.0 % Lymphocytes (%) (Auto) 24.7 10.0-50.0 % Monocytes (%) (Auto) 12.0 0.0-12.0 % Eosinophils (%) (Auto) 3.1 0.0-7.0 % Basophils (%) (Auto) 0.5 0.0-2.0 % Neutrophils # (Auto) 4.7 1.6-8.6 10 ^3/uL Lymphocytes # (Auto) 1.9 0.4-5.4 10 ^3/uL Monocytes # (Auto) 0.9 0-1.3 10 ^3/uL Eosinophils # (Auto) 0.2 0-0.8 10 ^3/uL Basophils # (Auto) 0 0-0.2 10 ^3/uL Nucleated Red Blood Cells 0.1 % Troponin I High Sensitivity 42 51 59 *H </=54 ng/L Sodium Level 136 136-145 mmol/L Potassium Level 5.0 3.5-5.1 mmol/L Chloride Level 103 98-107 mmol/L Carbon Dioxide Level 25 20-31 mmol/L Anion Gap 8 5-15 Blood Urea Nitrogen 38 H 9-23 mg/dL Creatinine 1.86 H 0.700-1.30 mg/dL Glomerular Filtration Rate Calc 39 >90 mL/min BUN/Creatinine Ratio 20.4 H 10.0-20.0 Serum Glucose 88 74-106 mg/dL Calcium Level 9.0 8.7-10.4 mg/dL Time of 1ST Reevaluation: 06:35 Reevaluation 1ST: Unchanged Patient Education/Counseling: Diagnosis, Treatment, Prognosis Family Education/Counseling: No Family Present Additional Information The following tests were ordered, and results were reviewed by me: BMP, CBC, TROP -x3, EKG -x3, XY CHEST PORTABLE Additional Information was gathered from interviewing the following independent historians: EMS I reviewed and agreed with the following test results read by other providers: XY CHEST I discussed treatment and results with medical personnel and: patient Departure 1 Departure Time of Disposition: 10:40 (Patient presented with chest pain that was concerning for possible STEMI, ACS, PE, Pneumonia, Muscle Strain, COPD, Dissection. Data: 1. I ordered and reviewed the result of at least 3 labs including a CBC, BMP, and Troponin. 2. I independently interpreted the following tests: EKG which shows _ sinus arrhythmia and Chest X-ray which shows vascular congestion.Risk:This patient has a high risk of morbidity due to further diagnostic testing or treatment and may suffer from an acute cardiac or respiratory disorder. Workup reveals concern for ACS and patient should be admitted for further workup and possible expert consultation. ) Impression: Primary Impression: Acute chest pain Additional Impression: Shortness of breath Disposition: ADMITTED INPATIENT Admit to: Med Surg Condition: Serious Critical Care Note Critical Care Time?: Yes Critical care comment: Acute chest pain Authorized and Performed by: Hank Coughlin MD Total critical care time: Approximately 36 minutes Due to a high probability of clinically significant, life threatening deterioration, the patient required my highest level of preparedness to intervene emergently and I personally spent this critical care time directly and personally managing the patient. This critical care time included obtaining a history; examining the patient; pulse oximetry; ordering and review of studies; arranging urgent treatment with development of a management plan; evaluation of patient's response to treatment; frequent reassessment; and, discussions with other providers. This critical care time was performed to assess and manage the high probability of imminent, life-threatening deterioration that could result in multi-organ failure. It was exclusive of separately billable procedures and treating other patients and teaching time. Please see my other sections and the rest of the note for further information on patient assessment and treatment. Stability Stability form required: No Heart Score Heart Score: Heart Score Response (Comments) Value History Moderate Suspicious 1 EKG Repolarization Disturb 1 Age >65 2 Risk Factors 1 or 2 risk factors 1 Troponin 1-2 x's Normal limit 1 Total 6 I personally scribed for HANK COUGHLIN MD ([email or web address]) on 08/18/24 at 07:18. Electronically submitted by Lisseth Bender ([email or web address]). I personally scribed for HANK COUGHLIN MD ([email or web address]) on 08/18/24 at 07:40. Electronically submitted by Lisseth Bender ([email or web address]). HANK COUGHLIN MD Aug 18, 2024 07:18
[2024-08-18 07:38] LABS: Chloride 103 mmol/L (98-107)
[2024-08-18 07:39] LABS: Anion Gap 8 (5-15); Carbon Dioxide 25 mmol/L (20-31)
[2024-08-18 07:44] LABS: BUN/Creatinine Ratio 20.4 (10.0-20.0); Glucose 88 mg/dL (74-106)
[2024-08-18 07:55] LABS: Blood Urea Nitrogen 38 mg/dL (9-23); Sodium 136 mmol/L (136-145)
--- NOTE | 2024-08-18 09:09 | ECG ---
[facility] Test Date: 2024-08-18 Test Time: 09:08:33 Pat Name: JOHN ZAPATA Department: ER Room: 0250T Gender: M Acid Blower: GP : 1960 Requested By: HANK COUGHLIN Order Number: [id number] Reading MD: James Cardenas Measurements Intervals [place] Rate: 61 P: 7 AL: 172 QRS: -9 QRSD: 95 T: 12 QT: 431 QTc: 434 Interpretive Statements Sinus rhythm Low voltage, precordial leads Baseline wander in lead(s) I,III,aVL,aVF,V2,V3 Electronically Signed On 08-22-2024 17:28:42 PST by James Cardenas Please click the below link to view image of tracing.
[2024-08-18 10:12] LABS: Basophils # (auto) 0 10 ^3/uL (0-0.2); Basophils % (auto) 0.5 % (0.0-2.0); Eosinophils # (auto) 0.2 10 ^3/uL (0-0.8); Eosinophils % (auto) 3.1 % (0.0-7.0); Hematocrit 40.5 % (41.0-53.0); Hemoglobin 12.9 g/dL (13.5-17.5); Lymphocytes # (auto) 1.9 10 ^3/uL (0.4-5.4); Lymphocytes % (auto) 24.7 % (10.0-50.0); Mean Corpuscular Hemoglobin 29.6 pg (28.0-32.0); Mean Corpuscular Hgb Conc. 31.9 g/dL (32.0-36.0); Mean Corpuscular Volume 92.9 fL (80.0-100.0); Monocytes # (auto) 0.9 10 ^3/uL (0-1.3); Neutrophils # (auto) 4.7 10 ^3/uL (1.6-8.6); Neutrophils % (auto) 59.7 % (37.0-80.0); Nucleated Red Blood Cells % 0.1 %; Platelet Count (auto) 109 10^3/uL (140-450); Red Blood Cells 4.36 10^6/uL (4.5-5.90); Red Cell Distribution Width 13.2 % (11.8-14.3); White Blood Cell 7.8 10^3/uL (4.4-10.8)
--- NOTE | 2024-08-18 10:31 | DVH ---
CHEST RADIOGRAPH Indication: chest pain Technique: Single frontal view of the chest was obtained COMPARISON: XY CHEST PORTABLE on DOS: 06/30/24, XY CHEST XRAY 1 VIEW on DOS: 05/28/24 FINDINGS: Lines and Tubes: None Lungs: Congestion Pleura: No effusion. No pneumothorax. Cardiomediastinal contours: Cardiomegaly Bones: Unremarkable IMPRESSION: Mild pulmonary vascular congestion
[2024-08-18] MEDS ORDERED: ONDANSETRON HCL 4 MG/2 ML VIAL IV PRN (13:00)
[2024-08-18] MEDS ORDERED: ACETAMINOPHEN 325 MG TAB PO PRN (13:00)
[2024-08-18] MEDS ORDERED: NITROGLYCERIN 0.4 MG SL TAB SL PRN (13:00)
[2024-08-18] MEDS ORDERED: DOCUSATE SOD 100 MG CAP PO PRN (13:00)
[2024-08-18] MEDS ORDERED: MORPHINE SULFATE INJ 2 MG/ml SYRG IV PRN (13:00)
[2024-08-18] MEDS ORDERED: FAMO40TA7 PO (13:06)
[2024-08-18] MEDS ORDERED: PRED10TA PO (13:06)
[2024-08-18] MEDS ORDERED: POTA-211 PO (13:06)
[2024-08-18] MEDS ORDERED: LISI40TA16 PO (13:06)
[2024-08-18] MEDS ORDERED: TRAZ-227 PO (13:06)
[2024-08-18] MEDS ORDERED: ASPI-325 PO (13:06)
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
[2024-08-18] MEDS: SODIUM CHLOR 0.9% PF (SALINE LOCK) 10ML VIAL/SYR IV SCH (14:27)
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
[2024-08-18] MEDS: HYDROcodone-ACET 5/325MG TAB PO PRN (15:36)
[2024-08-18 16:51] LABS: Magnesium 2.2 mg/dL (1.6-2.6)
[2024-08-18 17:46] VITALS: BP 95/55; PULSE 68; RESP 14; TEMP 97.7; O2SAT 97
[2024-08-18 20:00] VITALS: BP 94/52; PULSE 70; RESP 18; TEMP 98.2; O2SAT 95
[2024-08-18] MEDS: traZODone HCL 50 MG TAB PO SCH (21:35)
[2024-08-18] MEDS: ATORVASTATIN 20 MG TAB PO SCH (21:36)
[2024-08-19] VITALS (8 sets, daily range): BP systolic 96–146; BP diastolic 50–78; PULSE 60–72; RESP 15–19; TEMP 97.1–98.1; O2SAT 94–99
[2024-08-19 04:37] LABS: Basophils # (auto) 0 10 ^3/uL (0-0.2); Basophils % (auto) 0.5 % (0.0-2.0); Eosinophils # (auto) 0.3 10 ^3/uL (0-0.8); Eosinophils % (auto) 4.2 % (0.0-7.0); Hematocrit 39.6 % (41.0-53.0); Hemoglobin 12.7 g/dL (13.5-17.5); Lymphocytes # (auto) 1.8 10 ^3/uL (0.4-5.4); Lymphocytes % (auto) 25.2 % (10.0-50.0); Mean Corpuscular Hemoglobin 29.7 pg (28.0-32.0); Mean Corpuscular Hgb Conc. 32.2 g/dL (32.0-36.0); Mean Corpuscular Volume 92.3 fL (80.0-100.0); Monocytes # (auto) 0.8 10 ^3/uL (0-1.3); Monocytes % (auto) 11.8 % (0.0-12.0); Neutrophils # (auto) 4.2 10 ^3/uL (1.6-8.6); Neutrophils % (auto) 58.3 % (37.0-80.0); Nucleated Red Blood Cells % 0.1 %; Platelet Count (auto) 111 10^3/uL (140-450); Red Blood Cells 4.29 10^6/uL (4.5-5.90); Red Cell Distribution Width 12.8 % (11.8-14.3); White Blood Cell 7.1 10^3/uL (4.4-10.8)
[2024-08-19 04:40] LABS: Alanine Aminotransferase 20 U/L (7-40); Albumin 4.3 g/dL (3.2-4.8); Alkaline Phosphatase 76 U/L (46-116); Anion Gap 6 (5-15); Aspartate Aminotransferase 26 U/L (13-40); BUN/Creatinine Ratio 25.3 (10.0-20.0); Calcium 9.7 mg/dL (8.7-10.4); Carbon Dioxide 27 mmol/L (20-31); Chloride 104 mmol/L (98-107); Glucose 105 mg/dL (74-106); Potassium 4.9 mmol/L (3.5-5.1); Sodium 137 mmol/L (136-145)
[2024-08-19 04:41] LABS: Bilirubin, Total 0.5 mg/dL (0.2-1.0); Total Protein 6.9 g/dL (5.7-8.2)
[2024-08-19 04:57] LABS: Blood Urea Nitrogen 25 mg/dL (9-23)
[2024-08-19] MEDS ORDERED: REGADENOSON 0.4 MG/5 ML SYRG IV ONE ×2 (08:34→08:45)
[2024-08-19] MEDS: ASPirin-EC 81 mg tab PO SCH (09:50)
[2024-08-19] MEDS: LOSARTAN POTASSIUM 50 MG TAB PO SCH (09:51)
[2024-08-19] MEDS: FAMOTIDINE 20 MG TAB PO SCH (09:52)
--- NOTE | 2024-08-19 18:39 | DVHPN2 ---
Subjective in bed with no chest pain Changes from previous H/P or p: No Changes Eyes: No Pain, No Vision change, No Conjunctivae inflammation, No Eyelid inflammation, No Other, No Redness ENT: No Ear pain, No Ear discharge, No Nose pain, No Nose discharge, No Nose congestion, No Mouth pain, No Mouth swelling, No Throat pain, No Throat swelling, No Other Cardiovascular: Chest Pain (midsternal that radiates up his jaw to bilateral ears); No Palpitations, No Orthopnea, No Paroxysmal Noc. Dyspnea, No Edema, No Lt Headedness, No Other Respiratory: No Cough, No Dry, No Shortness of breath, No SOB with excertion, No Wheezing, No Hemoptysis, No Pleuritic Pain, No Sputum, No Other Gastrointestinal: No Nausea, No Vomiting, No Abdominal Pain, No Diarrhea, No Constipation, No Melena, No Hematochezia, No Other Genitourinary: No Dysuria, No Frequency, No Incontinence, No Hematuria, No Retention, No Other Musculoskeletal: No other, No neck pain, No shoulder pain, No arm pain, No back pain, No hand pain, No leg pain, No foot pain Skin: No Rash, No Lesions, No Jaundice, No Bruising, No Other Objective Vitals Vital Signs Date Time Temp Pulse Resp B/P (MAP) Pulse Ox O2 Delivery O2 Flow Rate FiO2 08/19/24 17:00 97.8 68 19 130/74 (92) 97 97.8 08/19/24 08:00 Nasal Cannula* 2 28 Intake/Output Intake and Output 08/19/24 07:00 Intake Total 0 ml Balance 0 ml Intake Oral 0 ml General Appearance: Alert, Oriented X3 HEENT: Atraumatic Lungs: Clear to auscultation Neuro: Normal gait Medications Current Medications Medications Dose Ordered Sig/Shekhar Route Start Time Stop Time Status Last Admin Dose Admin Sodium Chloride 10 ml Q8HR IV 08/18/24 14:00 08/19/24 15:13 10 ML Acetaminophen/ Hydrocodone Bitart 1 tab Q4HP PRN PO 08/18/24 13:00 08/19/24 15:12 1 TAB Ondansetron HCl 4 mg Q4HP PRN IV 08/18/24 13:00 Docusate Sodium 100 mg BIDPRN PRN PO 08/18/24 13:00 Acetaminophen 650 mg Q6HP PRN PO 08/18/24 13:00 Nitroglycerin 0.4 mg Q5MINP PRN SL 08/18/24 13:00 Morphine Sulfate 2 mg Q30M PRN IV 08/18/24 13:00 Losartan Potassium 50 mg DAILY PO 08/19/24 10:00 08/19/24 09:51 50 MG Aspirin 81 mg DAILY PO 08/19/24 10:00 Trazodone HCl 50 mg HS PO 08/18/24 22:00 08/18/24 21:35 50 MG Atorvastatin Calcium 40 mg HS PO 08/18/24 22:00 08/18/24 21:36 40 MG Famotidine 40 mg DAILY PO 08/19/24 10:00 08/19/24 09:52 40 MG Laboratory Results Laboratory Tests 08/19/24 03:38 Chemistry Test 08/19/24 03:38 Albumin 4.3 g/dL (3.2-4.8) Calcium Level 9.7 mg/dL (8.7-10.4) Total Protein 6.9 g/dL (5.7-8.2) LFT Test 08/19/24 03:38 Alanine Aminotransferase (ALT) 20 U/L (7-40) Alkaline Phosphatase 76 U/L (46-116) Aspartate Amino Transferase (AST) 26 U/L (13-40) Total Bilirubin 0.5 mg/dL (0.2-1.0) Microbiology Microbiology Date/Time Source Procedure Growth Status 08/18/24 20:32 Nose MRSA Screen - Final Complete Assessment/Plan Assessment/Plan NSTEMI, troponins trending down, pending stress test Acute kidney injury Creat 1.89>0.9 CHF, COPD, Hypertension, Plan discussed with: Patient Date of Service: Aug 19, 2024 Billing Provider: ANTHONY DOE MD Common Visit Codes: [id number] INP/OBS CARE(HIGH) ANTHONY DOE MD Aug 19, 2024 18:39
[2024-08-20] VITALS (9 sets, daily range): BP systolic 95–136; BP diastolic 55–78; PULSE 58–88; RESP 18–20; TEMP 97.5–98.8; O2SAT 90–98
--- NOTE | 2024-08-20 12:24 | DVHSR ---
APPROVED REPORT Exam: Nuclear Stress Test Indication: CHEST PAIN BMI: 0 Medical History Medical History: HTN, COPD ON 2L/NC, CHF Stress Test Details Stress Test: Pharmacologic stress testing performed using 0.4 mg of regadenoson per 5 mL given IV ov er 10 seconds. HR Resting HR: 56 bpmMax Heart Rate (APMHR): 154.212572 bpm Max HR Achieved: 72 bpmTarget HR (85% APMHR): 130.099039 bpm % of APMHR: 46.75 Recovery HR: 67 bpm BP Resting BP: 123/56 mmHg Recovery BP: 122/68 mmHg ECG Resting ECG: Sinus Bradycardia Clinical Reason for Termination: Completed protocol Stress ECG Conclusion no ischemia noted normal perfusion lvef 64% NM EXAM: Myocardial Perfusion REST/STRESS Imaging Protocol: Rest Tc-99m/Stress Tc-99m 1 day Resting Data Rest SPECT myocardial perfusion imaging was performed in supine position 60 minutes following the int ravenous injection of 14 mCi of Tc-99m Sestamibi. Time of rest injection: 30 Time of rest imagin Administration Route: IV Administration Site: Left Arm Pharmacologic Stress Pharmacologic stress test was performed by injecting Regadenoson 0.4 mg IV push followed by the intra venous injection of 32 mCi of Tc-99m Sestamibi. Time of stress injection: 841 Time of stress imagin Administration Route: IV Administration Site: Left Arm Gated Stress SPECT was performed 60 minutes after stress injection. The images were gated to evaluate regional wall motion and calculate left ventricular ejection fracti on. Stress only was performed in the Supine position. Nuclear Conclusion Nuclear Findings: negative for ischemia no ischemia noted normal perfusion lvef 64%
--- NOTE | 2024-08-20 14:06 | DVHPN2 ---
Consult Progress Note Subjective Other Systems: Patient denies any cardiac symptoms at time of assessment Objective vital signs Vital Sign Date Time Temp Pulse Resp B/P (MAP) Pulse Ox O2 Delivery O2 Flow Rate FiO2 08/20/24 13:04 98.8 64 18 136/77 (96) 90 98.8 08/20/24 08:00 Nasal Cannula* 2 28 Total Intake and Output 08/19/24 08/19/24 08/20/24 15:00 23:00 07:00 Intake Total 480 ml 1240 ml 1500 ml Output Total 1050 ml 575 ml Balance 480 ml 190 ml 925 ml medications Current Medications Medications Dose Ordered Sig/Shekhar Route Start Time Stop Time Status Last Admin Dose Admin Sodium Chloride 10 ml Q8HR IV 08/18/24 14:00 08/20/24 06:05 10 ML Acetaminophen/ Hydrocodone Bitart 1 tab Q4HP PRN PO 08/18/24 13:00 08/20/24 13:14 1 TAB Ondansetron HCl 4 mg Q4HP PRN IV 08/18/24 13:00 Docusate Sodium 100 mg BIDPRN PRN PO 08/18/24 13:00 Acetaminophen 650 mg Q6HP PRN PO 08/18/24 13:00 Nitroglycerin 0.4 mg Q5MINP PRN SL 08/18/24 13:00 Morphine Sulfate 2 mg Q30M PRN IV 08/18/24 13:00 Losartan Potassium 50 mg DAILY PO 08/19/24 10:00 08/20/24 10:33 50 MG Aspirin 81 mg DAILY PO 08/19/24 10:00 Trazodone HCl 50 mg HS PO 08/18/24 22:00 08/19/24 21:03 50 MG Atorvastatin Calcium 40 mg HS PO 08/18/24 22:00 08/19/24 21:02 40 MG Famotidine 40 mg DAILY PO 08/19/24 10:00 08/20/24 10:34 40 MG Examination: GENERAL:Normal, LUNGS:Normal, CVS:Normal, NEURO:Normal laboratory and microbiology Laboratory Tests 08/19/24 03:38 Test 08/19/24 03:38 Range/Units Serum Glucose 105 74-106 mg/dL Problem List/Assessment/Plan Problem List/Assessment/Plan Chest pain, ruled out coronary ischemia Chronic HFpEF, NYHA class II Hypertension Dyslipidemia COPD with home oxygen dependence CVA with right-sided deficits Acute kidney injury GERD History of polysubstance abuse Morbid obesity Plan/Recommendation (Dr. Cardenas): * Transthoracic echocardiogram from 07/02/2024 reveals EF 55-60% * BP control * Lipid lowering agent * Cardiac surveillance * Nuclear stress test: Negative for ischemia The patient underwent a Cardiolite nuclear stress test in which nuclear findings were negative for ischemia. There is no further inpatient cardiac workup indicated at this time. Thank you for allowing us to care for this patient. Please call with any questions or concerns. This medical document was created using an electronic medical record system with voice recognition software and computerized dictation system. Although this document has been carefully reviewed, there might still be some phonetic and typographical errors. Occasional wrong-word or ``sound-alike substitutions may have occurred due to the inherent limitations of voice recognition software. These areas are purely typographical due to imperfections of the software programs and do not reflect any compromise in the patient's medical care. Please read the chart carefully and recognize, using context, where these substitutions have occurred. Plan discussed with: Patient Date of Service: Aug 20, 2024 Billing Provider: SALINA OHARA Common Visit Codes: [id number] INP/OBS CARE(HIGH) SALINA OHARA Aug 20, 2024 14:06
--- NOTE | 2024-08-20 17:38 | DVHDS2 ---
Discharge Summary Date of Admission Aug 18, 2024 at 12:56 Date of Discharge: Aug 20, 2024 Labs/Diagnostic Data: Laboratory Results Test 08/19/24 03:38 08/18/24 15:55 08/18/24 09:37 White Blood Count 7.1 10^3/uL (4.4-10.8) Red Blood Count 4.29 10^6/uL (4.5-5.90) Hemoglobin 12.7 g/dL (13.5-17.5) Hematocrit 39.6 % (41.0-53.0) Mean Corpuscular Volume 92.3 fL (80.0-100.0) Mean Corpuscular Hemoglobin 29.7 pg (28.0-32.0) Mean Corpuscular Hemoglobin Concent 32.2 g/dL (32.0-36.0) Red Cell Distribution Width 12.8 % (11.8-14.3) Platelet Count 111 10^3/uL (140-450) Mean Platelet Volume 12.0 fL (6.9-10.8) Neutrophils (%) (Auto) 58.3 % (37.0-80.0) Lymphocytes (%) (Auto) 25.2 % (10.0-50.0) Monocytes (%) (Auto) 11.8 % (0.0-12.0) Eosinophils (%) (Auto) 4.2 % (0.0-7.0) Basophils (%) (Auto) 0.5 % (0.0-2.0) Neutrophils # (Auto) 4.2 10 ^3/uL (1.6-8.6) Lymphocytes # (Auto) 1.8 10 ^3/uL (0.4-5.4) Monocytes # (Auto) 0.8 10 ^3/uL (0-1.3) Eosinophils # (Auto) 0.3 10 ^3/uL (0-0.8) Basophils # (Auto) 0 10 ^3/uL (0-0.2) Nucleated Red Blood Cells 0.1 % Sodium Level 137 mmol/L (136-145) Potassium Level 4.9 mmol/L (3.5-5.1) Chloride Level 104 mmol/L (98-107) Carbon Dioxide Level 27 mmol/L (20-31) Anion Gap 6 (5-15) Blood Urea Nitrogen 25 mg/dL (9-23) Creatinine 0.99 mg/dL (0.700-1.30) Glomerular Filtration Rate Calc 84 mL/min (>90) BUN/Creatinine Ratio 25.3 (10.0-20.0) Serum Glucose 105 mg/dL (74-106) Calcium Level 9.7 mg/dL (8.7-10.4) Total Bilirubin 0.5 mg/dL (0.2-1.0) Aspartate Amino Transferase (AST) 26 U/L (13-40) Alanine Aminotransferase (ALT) 20 U/L (7-40) Alkaline Phosphatase 76 U/L (46-116) Total Protein 6.9 g/dL (5.7-8.2) Albumin 4.3 g/dL (3.2-4.8) Hemoglobin A1c 5.1 % A1C (<5.7) Magnesium Level 2.2 mg/dL (1.6-2.6) B-Type Natriuretic Peptide 46.96 pg/mL (0-100) Triglycerides Level 149 mg/dL (< 150) Cholesterol Level 151 mg/dL (< 200) LDL Cholesterol 94 mg/dL (< 100) HDL Cholesterol 35 mg/dL (40-59) Thyroid Stimulating Hormone (TSH) 0.88 uIU/mL (0.55-4.78) Troponin I High Sensitivity 42 ng/L (</=54) Other Laboratory Tests 08/19/24 03:38 Brief Hx & Hospital Course: Tio Still SR is a 64-year-old male with past medical history of CVA with right sided weakness, COPD wears home oxygen at 2L/NC, hypertension, hyperlipidemia, and CHF, who came to the hospital for chest pain. Patient states the chest pain started last night about 2330. It was midsternal that radiates up his jaw to bilateral ears. He states he has had chest pain before, but this was worse. He took a famotidine and called EMS. Patient states the famotidine resolved his chest pain so he did not go with EMS. At 0245he was awoken by the chest pain again, then again at 0530. He took another famotidine, and it helped, but he chose to have EMS bring him to the hospital to be evaluated. Troponins trended down and chest pain resolved seen by cardiology and stress test negative Condition at Discharge: Good Final Diagnosis/Problems List NSTEMI present on admision and ruled out Acute kidney injury Creat 1.89>0.9 CHF stable COPD, Hypertension, Discharge Disposition: Home Discharge Instruct/Medications Diet: Regular Activity: No Restrictions, As Tolerated Follow Up/Referral: follow up with PCP in 7 days Discharge Statement: "Patient was advised to return to the ER or call 911 if any headaches, dizziness, shortness of breath, chest pain, abdominal pain, bleeding, fevers, or worsening of medical condition. Patient was counseled about treatment plan, medications, possible side effects, patientverbalized understanding. All questions were answered to the best of my ability. This discharge took greater then 30 minutes in planning, reviewing documentation, counseling the patient, and discussing with other team members." ASSESSMENT ASSESSMENT Assessment Date of Service: Aug 20, 2024 Billing Provider: ANTHONY DOE MD Common Visit Codes: 69319-OOJ/OBS DISCH DAY >30min ANTHONY DOE MD Aug 20, 2024 17:38
== END 2024-08-20 20:37 | disposition home or self-care (01) | DRG 198 ==
LOC: EDBD 06:06 → ER 06:06 → OVERFLOW 12:56 → TELE-EAST 08-19 04:35
PROVIDERS: ADMIT Hospitalist; ATTEND Hospitalist
DX: I24.9 Acute ischemic heart disease, unspecified (principal); N17.0 Acute kidney failure with tubular necrosis; I50.32 Chronic diastolic (congestive) heart failure; I11.0 Hypertensive heart disease with heart failure; I69.351 Hemiplegia and hemiparesis following cerebral infarction affecting right dominant side; Z99.81 Dependence on supplemental oxygen; K21.9 Gastro-esophageal reflux disease without esophagitis; J44.9 Chronic obstructive pulmonary disease, unspecified; E66.01 Morbid (severe) obesity due to excess calories; E78.5 Hyperlipidemia, unspecified; Z68.42 Body mass index [BMI] 45.0-49.9, adult; Z79.899 Other long term (current) drug therapy
CPT/HCPCS: 36415; 71045; 78452; 80048; 80053; 80061; 83036; 83735; 83880; 84443; 84484; 85025; 87081; 93005; 93017; 99291; G0378

== ENCOUNTER 2024-10-12 20:07 | Emergency (ER) | payer MEDICAID ==
[~2024-10-12] VITALS: Ht 170.2 cm; Wt 91.0 kg
[~2024-10-12 20:07] MED LIST changes: +ASPI-325 PO; +FAMO40TA7 PO; -LEVO500T91 PO; +LISI40TA16 PO; +POTA-211 PO; +PRED10TA PO; -PRED20TA2 PO; +TRAZ-227 PO
--- NOTE | 2024-10-12 20:22 | ED.PDOC ---
History of Present Illness HPI Comments 64-year-old male brought in by EMS presents with a chief complaint of ingestion and anxiety. Patient took his Methadone x 2 hours ago and then an hour later took an Suboxone. Patient is now withdrawing and is stating that he has a lot of anxiety. Patient denies chest pain, SOB, abdomen pain, N/V/D or headache. Time Seen by MD: 20:18 Reviewed Notes: Medications, Allergies Allergies: Coded Allergies: NO KNOWN ALLERGIES (Unverified , 05/29/24) Home Meds Active Scripts Furosemide (Furosemide) 20 Mg Tab, 1 TAB PO DAILY, #30 TAB 1 Refill Prov:ZACARIAS FORDE MD 08/04/24 Losartan Potassium (Losartan Potassium) 50 Mg Tab, 1 TAB PO DAILY, #30 TAB 1 Refill Prov:ELIS CHOUDHURY MD 07/02/24 Atorvastatin Calcium (ATORVASTATIN CALCIUM) 40 Mg Tab, 40 MG PO DAILY for 30 Days, #30 TAB 2 Refills Prov:CORNELL ARIAS RESIDENT 10/11/23 Reported Medications Trazodone Hcl (Trazodone Hcl) 50 Mg Tab, 1 TAB PO HS 08/18/24 Aspirin (Aspirin Low Dose) 81 Mg Tab, 1 TAB PO DAILY 08/18/24 Potassium Chloride (Klor-Con 10) 10 Meq Tab, 1 TAB PO BID 08/18/24 Prednisone (Prednisone) 10 Mg Tab, 1 TAB PO BID 08/18/24 Lisinopril (Lisinopril) 40 Mg Tab, 1 TAB PO DAILY 08/18/24 Famotidine (Famotidine) 40 Mg Tab, 1 TAB PO DAILY 08/18/24 Information Source: Emergency Med Personnel Mode of Arrival: EMS Severity: Moderate Timing: Hours Duration: Since onset 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 Past Medical History PAST MEDICAL HISTORY: CHF, COPD, CVA, HTN Surgical History: Denies all surgeries Family History Family History: Reviewed,noncontributory to illness Social History Smoker: Non-Smoker Alcohol: Denies ETOH Use Drugs: Methamphetamine Lives In: Home Constitutional: denies: chills, diaphoresis, fatigue, fever, malaise, sweats, weakness, others EENTM: denies: blurred vision, double vision, ear bleeding, ear discharge, ear drainage, ear pain, ear ringing, eye pain, eye redness, hearing loss, mouth pain, mouth swelling, nasal discharge, nose bleeding, nose congestion, nose pain, photophobia, tearing, throat pain, throat swelling, voice changes, others Respiratory: denies: cough, hemoptysis, orthopnea, SOB at rest, shortness of breath, SOB with excertion, stridor, wheezing, others Cardiovascular: denies: chest pain, dizzy spells, diaphoresis, Dyspnea on exertion, edema, irregular heart beat, left arm pain, lightheadedness, pal pitations, PND, syncope, others Gastrointestinal: denies: abdomen distended, abdominal pain, blood streaked bowels, constipated, diarrhea, dysphagia, difficulty swallowing, hematemesis, melena, nausea, poor appetite, poor fluid intake, rectal bleeding, rectal pain, vomiting, others Genitourinary: denies: burning, dysuria, flank pain, frequency, hematuria, incontinence, penile discharge, penile sore, pain, testicle pain, testicle swelling, urgency, others Neurological: denies: dizziness, fainting, headache, left sided numbness, left sided weakness, numbness, paresthesia, pre-existing deficit, right sided numbness, right sided weakness, seizure, speech problems, tingling, tremors, weakness, others Musculoskeletal: denies: back pain, gout, joint pain, joint swelling, muscle pain, muscle stiffness, neck pain, others Integumetry: denies: bruises, change in color, change in hair/nails, dryness, laceration, lesions, lumps, rash, wounds, others Allergic/Immunocompromised: denies: Difficulty Healing, Frequent Infections, Hives, Itching, others Hematologic/Lymphatic: denies: anemia, blood clots, easy bleeding, easy bru ising, swollen glands, others Endocrine: denies: excessive hunger, excessive sweating, excessive thirst, e xcessive urination, flushing, intolerance to cold, intolerance to heat, unexplained weight gain, unexplained weight loss, others Psychiatric: reports: anxiety; denies: bipolar disorder, depression, hopeless, panic disorder, schizophrenia, sleepless, suicidal, others All Other Systems: Reviewed and Negative Physical Exam General Appearance: Mild Distress, Obese, Other (ANXIOUS APPEARING) HEENT: Normal ENT Inspection, Pharynx Normal, TMs Normal Neck: Full Range of Motion, Non-Tender, Normal, Normal Inspection Respiratory: Chest Non-Tender, Lungs Clear, No Accessory Muscle Use, No Respiratory Distress, Normal Breath Sounds Cardiovascular: No Edema, No JVD, No Murmur, No Gallop, Normal Peripheral Pulses, Regular Rate/Rhythm Breast Exam: Deferred Gastrointestinal: No Organomegaly, Non Tender, No Pulsatile Mass, Normal Bowel Sounds, Soft Genitalia: Deferred Pelvic: Deferred Rectal: Deferred Extremities: No calf tenderness, Normal capillary refill, Normal inspection, Normal range of motion, Non-tender, No pedal edema Musculoskeletal : Apperance: Normal Neurologic: Alert, zone 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 Was a procedure done?: No Differential Dx Considerations may include: Polysubstance abuse, opiate withdrawal X-Ray, Labs, Meds, VS Vital Signs Date Time Temp Pulse Resp B/P (MAP) Pulse Ox O2 Delivery O2 Flow Rate FiO2 10/12/24 21:39 84 20 96 Nasal Cannula* 2 28 10/12/24 21:30 98.6 86 20 128/65 (86) 94 98.6 10/12/24 20:09 98.6 95 18 130/78 (95) 100 98.6 Current Medications Medications (Trade) Dose Ordered Sig/Shekhar Route Start Time Stop Time Status Last Admin Ondansetron HCl (Zofran Po) 4 mg ONCE ONCE PO 10/12/24 20:30 10/12/24 20:31 DC 10/12/24 21:36 Lorazepam (Ativan Tablet) 2 mg ONCE ONCE PO 10/12/24 20:30 10/12/24 20:31 DC 10/12/24 21:37 Famotidine (Pepcid Tablet) 20 mg ONCE ONCE PO 10/12/24 20:30 10/12/24 20:31 DC 10/12/24 21:36 Time of 1ST Reevaluation: 20:48 Reevaluation 1ST: Unchanged Patient Education/Counseling: Diagnosis, Treatment Family Education/Counseling: No Family Present Departure 1 Departure Time of Disposition: 23:04 (Patient with withdrawal symptoms after using Suboxone after his methadone. Patient is symptomatically and we will discharge patient home with outpatient follow up) Impression: Primary Impression: Opiate withdrawal Disposition: 01 HOME / SELF CARE / HOMELESS Condition: Stable Additional Instructions: Please continue to take your regular medication You should follow up with the regular doctors. If your symptoms worsen or you have any other concerns please return to the emergency room. Discharged With: Self Critical Care Note Critical Care Time?: No Stability Stability form required: No I personally scribed for HANK COUGHLIN MD ([email or web address]) on 10/12/24 at 20:22. Electronically submitted by Byron Guerin ([email or web address]). HANK COUGHLIN MD Oct 12, 2024 20:22
[2024-10-12] MEDS: ONDANSETRON ODT 4 MG TAB PO ONE (21:36)
[2024-10-12] MEDS: FAMOTIDINE 20 MG TAB PO ONE (21:36)
[2024-10-12] MEDS: LORazepam 0.5 MG TAB PO ONE (21:37)
[2024-10-12 21:39] VITALS: PULSE 84; RESP 20; O2SAT 96
[2024-10-13 02:08] VITALS: BP 117/65; PULSE 79; RESP 16; TEMP 97.8; O2SAT 94
== END 2024-10-13 02:09 | disposition home or self-care (01) ==
LOC: ER 20:07 → EDBD 20:07 → ER 10-13 02:09
DX: F11.23 Opioid dependence with withdrawal (principal); I11.0 Hypertensive heart disease with heart failure; I50.9 Heart failure, unspecified; J44.9 Chronic obstructive pulmonary disease, unspecified; Z86.73 Personal history of transient ischemic attack (TIA), and cerebral infarction without residual deficits; Z79.52 Long term (current) use of systemic steroids; Z79.82 Long term (current) use of aspirin; Z79.899 Other long term (current) drug therapy
CPT/HCPCS: 82947; 99284; Q0162

== ENCOUNTER 2025-01-23 14:12 | Emergency (ER) | payer MEDICAID, OTHER ==
[~2025-01-23] VITALS: Ht 172.7 cm; Wt 91.0 kg
[2025-01-23 14:19] VITALS: BP 132/80; RESP 20; TEMP 98.8; O2SAT 97
--- NOTE | 2025-01-23 14:26 | ED.PDOC ---
History of Present Illness HPI Comments 65-year-old male brought by paramedics from home because he was having chest pain about an hour ago while sitting down. No radiation chest pain. He states chest pain is 7/10. He does have a history of hypertension CVA. Vitals are stable on arrival. Denies nausea vomiting. Denies any other symptoms. Chief Complaint: Chest Pain Time Seen by MD: 14:24 Reviewed Notes: Nurses Notes, Medications, Allergies Allergies: Coded Allergies: NO KNOWN ALLERGIES (Unverified , 05/29/24) Home Meds Active Scripts Furosemide (Furosemide) 20 Mg Tab, 1 TAB PO DAILY, #30 TAB 1 Refill Prov:ZACARIAS FORDE MD 08/04/24 Losartan Potassium (Losartan Potassium) 50 Mg Tab, 1 TAB PO DAILY, #30 TAB 1 Refill Prov:ELIS CHOUDHURY MD 07/02/24 Atorvastatin Calcium (ATORVASTATIN CALCIUM) 40 Mg Tab, 40 MG PO DAILY for 30 Days, #30 TAB 2 Refills Prov:CORNELL ARIAS RESIDENT 10/11/23 Reported Medications Trazodone Hcl (Trazodone Hcl) 50 Mg Tab, 1 TAB PO HS 08/18/24 Aspirin (Aspirin Low Dose) 81 Mg Tab, 1 TAB PO DAILY 08/18/24 Potassium Chloride (Klor-Con 10) 10 Meq Tab, 1 TAB PO BID 08/18/24 Prednisone (Prednisone) 10 Mg Tab, 1 TAB PO BID 08/18/24 Lisinopril (Lisinopril) 40 Mg Tab, 1 TAB PO DAILY 08/18/24 Famotidine (Famotidine) 40 Mg Tab, 1 TAB PO DAILY 08/18/24 Information Source: Patient, Emergency Med Personnel Mode of Arrival: EMS Severity: Moderate Timing: Hours Duration: Since onset Past Medical History PAST MEDICAL HISTORY: CHF, COPD, CVA, HTN Surgical History: Denies all surgeries Family History Family History: Reviewed,noncontributory to illness Social History Smoker: Non-Smoker Alcohol: Denies ETOH Use Drugs: Methamphetamine Lives In: Home Physical Exam General Appearance: Moderate Distress HEENT: Normal ENT Inspection, Pharynx Normal, TMs Normal Neck: Full Range of Motion, Non-Tender, Normal, Normal Inspection Respiratory: Chest Non-Tender, Lungs Clear, No Accessory Muscle Use, No Respiratory Distress, Normal Breath Sounds Cardiovascular: No Edema, No JVD, No Murmur, No Gallop, Normal Peripheral Pulses, Regular Rate/Rhythm Breast Exam: Deferred Gastrointestinal: No Organomegaly, Non Tender, No Pulsatile Mass, Normal Bowel Sounds, Soft Genitalia: Deferred Pelvic: Deferred Rectal: Deferred Extremities: No calf tenderness, Normal capillary refill, Non-tender, No pedal edema Musculoskeletal : Apperance: Normal Neurologic: Alert, 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 Was a procedure done?: No EKG EKG : Pulse Rate (adult): 62 [place]: LAD Cardiac Rhythm: NSR Block: None Hypertrophy: None ST: Normal Differential Dx Considerations may include: Anemia Electrolyte imbalance X-Ray, Labs, Meds, VS Vital Signs Date Time Temp Pulse Resp B/P (MAP) Pulse Ox O2 Delivery O2 Flow Rate FiO2 01/23/25 15:07 62 01/23/25 14:25 62 01/23/25 14:19 98.8 70 20 132/80 (97) 97 98.8 01/23/25 14:19 98.8 70 20 132/80 97 98.8 Lab Test 01/23/25 15:38 01/23/25 14:42 Range/Units Troponin I High Sensitivity < 3 L < 3 L </=54 ng/L White Blood Count 8.5 4.4-10.8 10^3/uL Red Blood Count 4.51 4.5-5.90 10^6/uL Hemoglobin 12.3 L 13.5-17.5 g/dL Hematocrit 37.6 L 41.0-53.0 % Mean Corpuscular Volume 83.3 80.0-100.0 fL Mean Corpuscular Hemoglobin 27.3 L 28.0-32.0 pg Mean Corpuscular Hemoglobin Concent 32.8 32.0-36.0 g/dL Red Cell Distribution Width 13.5 11.8-14.3 % Platelet Count 113 L 140-450 10^3/uL Mean Platelet Volume 10.6 6.9-10.8 fL Neutrophils (%) (Auto) 66.3 37.0-80.0 % Lymphocytes (%) (Auto) 21.2 10.0-50.0 % Monocytes (%) (Auto) 7.2 0.0-12.0 % Eosinophils (%) (Auto) 4.9 0.0-7.0 % Basophils (%) (Auto) 0.4 0.0-2.0 % Neutrophils # (Auto) 5.6 1.6-8.6 10 ^3/uL Lymphocytes # (Auto) 1.8 0.4-5.4 10 ^3/uL Monocytes # (Auto) 0.6 0-1.3 10 ^3/uL Eosinophils # (Auto) 0.4 0-0.8 10 ^3/uL Basophils # (Auto) 0 0-0.2 10 ^3/uL Nucleated Red Blood Cells 0.1 % Sodium Level 140 136-145 mmol/L Potassium Level 4.6 3.5-5.1 mmol/L Chloride Level 108 H 98-107 mmol/L Carbon Dioxide Level 25 20-31 mmol/L Anion Gap 7 5-15 Blood Urea Nitrogen 13 9-23 mg/dL Creatinine 0.94 0.700-1.30 mg/dL Glomerular Filtration Rate Calc 89 >90 mL/min BUN/Creatinine Ratio 13.8 10.0-20.0 Serum Glucose 123 H 74-106 mg/dL Calcium Level 8.7 8.7-10.4 mg/dL Patient alert. Complaining of chest pain. Vitals stable. Answering questions. History of coronary artery disease. Cardiac marker within normal limits. EKG reviewed does not show any acute changes. He was given aspirin in the field. He was given nitro. Explained to the patient. Continue monitoring. Time of 1ST Reevaluation: 17:49 Reevaluation 1ST: Unchanged Patient Education/Counseling: Diagnosis, Treatment, Prognosis Family Education/Counseling: No Family Present SEPSIS Sepsis Screen Physician Orders Urinalysis (01/23/25 14:33) Electrocardigram (01/23/25 14:40) Vital Signs Date Time Temp Pulse Resp B/P (MAP) Pulse Ox O2 Delivery O2 Flow Rate FiO2 01/23/25 15:07 62 01/23/25 14:25 62 01/23/25 14:19 98.8 70 20 132/80 (97) 97 98.8 01/23/25 14:19 98.8 70 20 132/80 97 98.8 Laboratory Tests Test 01/23/25 14:42 White Blood Count 8.5 10^3/uL (4.4-10.8) Departure 1 Departure Time of Disposition: 17:50 Impression: Primary Impression: Chest pain of unknown etiology Disposition: ADMITTED INPATIENT Admit to: Med Surg Condition: Guarded Critical Care Note Critical Care Time?: No Stability Stability form required: No Heart Score Heart Score: Heart Score Response (Comments) Value History Slightly Suspicious 0 EKG Normal 0 Age >65 2 Risk Factors >3 or Hx ASHD 2 Troponin Normal limit 0 Total 4 I personally scribed for REJI LUIS MD ([email or web address]) on 01/23/25 at 15:07. Electronically submitted by Ariadne Flanagan ([facility]). REJI LUIS MD Jan 23, 2025 14:26
[2025-01-23] MEDS ORDERED: NITROGLYCERIN 0.4 MG SL TAB SL ONE (14:45)
[2025-01-23 14:55] LABS: Hematocrit 37.6 % (41.0-53.0); Hemoglobin 12.3 g/dL (13.5-17.5); Mean Corpuscular Hemoglobin 27.3 pg (28.0-32.0); Mean Corpuscular Volume 83.3 fL (80.0-100.0); Nucleated Red Blood Cells % 0.1 %
[2025-01-23 15:04] LABS: Potassium 4.6 mmol/L (3.5-5.1); Sodium 140 mmol/L (136-145)
[2025-01-23 15:05] LABS: Anion Gap 7 (5-15); Carbon Dioxide 25 mmol/L (20-31)
[2025-01-23 15:07] VITALS: PULSE 62
[2025-01-23 15:10] LABS: BUN/Creatinine Ratio 13.8 (10.0-20.0); Blood Urea Nitrogen 13 mg/dL (9-23)
[2025-01-23 15:11] LABS: Chloride 108 mmol/L (98-107); Glucose 123 mg/dL (74-106)
[2025-01-23 15:12] LABS: Calcium 8.7 mg/dL (8.7-10.4)
--- NOTE | 2025-01-25 08:09 | ECG ---
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
== END 2025-01-23 15:57 | disposition left against medical advice (07) ==
LOC: EDUNIT# 14:12 → EDBD 14:12 → ER 14:17
DX: I11.0 Hypertensive heart disease with heart failure (principal); I50.9 Heart failure, unspecified; J44.9 Chronic obstructive pulmonary disease, unspecified; Z79.82 Long term (current) use of aspirin; Z79.899 Other long term (current) drug therapy; Z86.73 Personal history of transient ischemic attack (TIA), and cerebral infarction without residual deficits
CPT/HCPCS: 36415; 80048; 84484; 85025; 93005

== ENCOUNTER 2025-03-15 18:27 | Emergency (ER) | payer OTHER ==
[~2025-03-15] VITALS: Ht 167.6 cm; Wt 79.5 kg
[2025-03-15 18:29] VITALS: BP 186/95; PULSE 69; RESP 16; TEMP 97.8; O2SAT 98
--- NOTE | 2025-03-16 15:05 | ECG ---
[facility] Test Date: 2025-03-15 Test Time: 18:29:43 Pat Name: JOHN ZAPATA Department: Room: Gender: M Ophthalmic Dispenser: EDWAR : 1960 Requested By: EMERGENCY EMERGENCY Order Number: [id number] Reading MD: James Cardenas Measurements Intervals [place] Rate: 69 P: 46 ME: 174 QRS: -41 QRSD: 88 T: 54 QT: 411 QTc: 441 Interpretive Statements Sinus rhythm Left anterior fascicular block Abnormal R-wave progression, late transition Minimal ST depression, lateral leads Electronically Signed On 03-16-2025 15:42:46 PDT by James Cardenas Please click the below link to view image of tracing.
== END 2025-03-15 19:05 | disposition left against medical advice (07) ==
LOC: ER 18:27 → EDUNIT# 18:27 → EDBD 18:27 → ER 19:05
DX: R10.9 Unspecified abdominal pain (principal); Z79.899 Other long term (current) drug therapy; Z53.21 Procedure and treatment not carried out due to patient leaving prior to being seen by health care provider
CPT/HCPCS: 93005